=== PATIENT | female | born 1955 | race Caucasian/White ===

== ENCOUNTER → 2019-06-10 17:45 | Outpatient (CLI) | payer OTHER, SELFPAY ==
--- NOTE | ~2019-06-10 | MM_ITS ---
EXAMINATION: MM screening to BI w atif HISTORY: Screening mammogram TECHNIQUE: Craniocaudal and mediolateral oblique 3-D tomosynthesis images were obtained and synthetic 2-D images were generated. CAD analysis was submitted and interpreted. COMPARISON: No prior mammogram is available for comparison at this institution. BREAST PARENCHYMAL COMPOSITION: The breasts are heterogeneously dense, which may obscure small masses . FINDINGS: There is no evidence of suspicious mass, calcification, or architectural distortion to sugg est malignancy in either breast. There has been no suspicious interval change. IMPRESSION: 1. No mammographic evidence of malignancy. 2. Recommend routine screening mammography in one year. BI-RADS Category 1: Negative Reviewed, dictated and finalized at location A. 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
== END ==
PROVIDERS: Visit Provider Obstetrics & Gynecology
DX: Z12.31 Encounter for screening mammogram for malignant neoplasm of breast (principal)
CPT/HCPCS: 77063; 77067

== ENCOUNTER 2019-09-18 09:02 | Outpatient (CLI) | payer OTHER, SELFPAY | END 2019-09-18 09:03 | disposition home or self-care (01) | PROVIDERS: PCP Family Medicine; Visit Provider Family Medicine | DX: H90.3 Sensorineural hearing loss, bilateral (principal) | CPT/HCPCS: 92557; 92567 ==

== ENCOUNTER 2020-02-23 08:39 | Outpatient (NON) | payer OTHER, SELFPAY ==
[2020-02-25 13:17] LABS: SARS-CoV-2 RNA PCR Negative
== END 2020-02-23 08:40 ==
LOC: ANHCOVIDDT 08:40
PROVIDERS: Visit Provider Family Medicine
DX: Z20.828 Contact with and (suspected) exposure to other viral communicable diseases (principal)
CPT/HCPCS: 87635; C9803; U0003

== ENCOUNTER → 2020-06-19 01:38 | Outpatient (CLI) | payer BC, SELFPAY ==
[2020-06-19 18:53] LABS: SARS-CoV-2 RNA PCR Negative
== END ==
PROVIDERS: PCP Family Medicine; Visit Provider Internal Medicine Gastroenterology
DX: Z01.812 Encounter for preprocedural laboratory examination (principal); Z20.822 Contact with and (suspected) exposure to COVID-19
CPT/HCPCS: C9803; U0003; U0005

== ENCOUNTER 2020-06-22 01:06 | Day surgery (SDC) | payer BC, SELFPAY ==
[2020-06-10 15:32] VITALS: BMI 21.9
[2020-06-22 06:27] VITALS: BP 115/81; PULSE 78; RESP 18; TEMP 36.7; O2SAT 96; BMI 21.3
[2020-06-22] MEDS: LACTATED RINGERS 1,000 ML 150 ML IV CONT (06:39)
--- NOTE | 2020-06-22 07:08 | WPDANESEPPF ---
Anes - Initial Pre Proc Eval Procedure: Operation Date: 06/22/20 07:30 Proposed Procedures p Screening Colonoscopy - Bhupendra Lopez MD Date/Time: 06/22/20 07:08 Surgeon: Bhupendra Lopez MD Pre Op Diagnosis: Neoplasm Screening Patient Data Age: 64 Gender: F Height: 5 ft 4 in Weight: 56.3 kg Last Vital Signs Temp 98.0 F 06/22/20 06:27 Pulse 78 06/22/20 06:27 Resp 18 06/22/20 06:27 BP 115/81 06/22/20 06:27 Pulse Ox 96 06/22/20 06:27 Allergies Allergy/AdvReac Type Severity Reaction Status Date / Time No Known Allergies Allergy Unknown Verified 06/22/20 06:24 Home Medications Medication Instructions Recorded Confirmed Type valsartan 160 1 tablet PO DAILY #90 tablet 07/11/19 06/22/20 Rx mg-hydrochlorothiazide 25 mg tablet docusate sodium 100 mg capsule 100 mg PO BID 10/06/19 06/22/20 History famotidine 20 mg tablet 20 mg PO BID tablet 10/06/19 06/22/20 History polyethylene glycol 3350 17 17 gm PO DAILY 10/06/19 06/22/20 History gram/dose oral powder levothyroxine 100 mcg tablet 100 mcg PO DAILY #90 tablet 10/08/19 06/22/20 Rx mometasone 50 mcg/actuation nasal 2 spray NASAL DAILY #17 gm 03/18/20 06/22/20 Rx spray nitrofurantoin macrocrystal 50 mg See Rx Instructions PO .COMPLEX 05/18/20 06/22/20 Rx capsule #90 cap calcium carbonate [Calcium 500] 500 mg PO DAILY 06/10/20 06/22/20 History diclofenac sodium [Voltaren] 2 gm TOPICAL QID PRN 06/10/20 06/22/20 History fexofenadine 60 mg PO HS 06/10/20 06/22/20 History fexofenadine-pseudoephedrine 1 tablet PO DAILY 06/10/20 06/22/20 History [Harmony-D 12 Hour] cb-pi-yqdz-FA-Ca carb-vit K 1 tablet PO DAILY 06/10/20 06/22/20 History [Women's Multivitamin] Patient hx anesthesia problems: none Family hx anesthesia problems: none [facility] Past Medical History Medical History (Updated 06/22/20 @ 07:08 by Candelario Flores MD) Essential (primary) hypertension GERD (gastroesophageal reflux disease) Hypothyroidism (acquired) Surgical History Surgical History H/O hernia repair H/O: hysterectomy (~06/2019) left ovaries History of bladder surgery Family History Family History Father Diabetes mellitus Hypertension Family history of elevated blood lipids Family history of cardiovascular disease Family history of coronary artery disease Grandparent Cerebrovascular accident Social History Social History Smoking packs per day: 2 Smoking cigarettes per day: 40.0 Years smoked: 28 Smoking pack-years: 56.00 Smoking status: Former smoker Alcohol intake: current Alcohol use details: rarely Living arrangements: with family Gender identity (if verbalized by the patient): Female Spiritual care concerns: No Anes - Eval Final PreProcedure Day of Procedure 06/22/20 07:08 Patient weight: normal Heart: regular rate and rhythm Lungs: clear to auscultation Airway: Mallampati scale class II (braces) Neurological: alert and oriented Last oral intake: >/= 8 hours ASA classification: II Emergent: no Anesthetic plan: proceed Anesthesia type and monitoring: general GIVS and standard monitoring Informed Consent: The patient's anesthetic plan and its attendant risks and benefits were discussed with the patient/family/POA. Questions were solicited and answers provided to the satisfaction of the patient/family/POA.
--- NOTE | 2020-06-22 07:28 | PM.HPGS ---
History of Present Illness History of Present Illness Consent: Risks, benefits, and alternatives have been discussed and questions answered. Patient agrees to proceed with procedure. Chief complaint: Neoplasm Screening Narrative: Jessica Lam is a 64 year old female with last colonoscopy 2009 Review of Systems Constitutional: Constitutional: Denies headache(s) and Denies weakness Eyes: Eyes: Denies blurry vision ENT: Reports Normal hearing present, Denies headache(s) and Denies neck pain Cardiovascular: Cardiovascular: Denies chest pain and Denies dyspnea Respiratory: Respiratory: Denies dyspnea Gastrointestinal: Gastrointestinal: Reports no additional gastrointestinal complaints Genitourinary: Genitourinary: Denies dysuria Musculoskeletal: Musculoskeletal: Denies neck pain Integumentary/Breasts: Skin/Breast: Denies dry skin Neurologic: Reports Normal hearing present, Denies headache(s) and Denies weakness Psychiatric: Psychiatric: Denies anxiety Endocrine: Endocrine: Denies change in body appearance Hematologic/Lymphatic: Hematologic/Lymphatic: Denies easy bleeding Allergic/Immunologic: Allergic/Immunologic: Denies urticaria [facility] Past Medical History Medical History (Updated 06/22/20 @ 07:28 by Bhupendra Lopez MD) Colon cancer screening Essential (primary) hypertension GERD (gastroesophageal reflux disease) Hypothyroidism (acquired) Surgical History Surgical History H/O hernia repair H/O: hysterectomy (~06/2019) left ovaries History of bladder surgery Family History Family History Father Diabetes mellitus Hypertension Family history of elevated blood lipids Family history of cardiovascular disease Family history of coronary artery disease Grandparent Cerebrovascular accident Social History Social History Smoking packs per day: 2 Smoking cigarettes per day: 40.0 Years smoked: 28 Smoking pack-years: 56.00 Smoking status: Former smoker Alcohol intake: current Alcohol use details: rarely Living arrangements: with family Gender identity (if verbalized by the patient): Female Spiritual care concerns: No Meds Home Medications and Allergies Home Medications Medication Instructions Recorded Confirmed Type valsartan 160 1 tablet PO DAILY #90 tablet 07/11/19 06/22/20 Rx mg-hydrochlorothiazide 25 mg tablet docusate sodium 100 mg capsule 100 mg PO BID 10/06/19 06/22/20 History famotidine 20 mg tablet 20 mg PO BID tablet 10/06/19 06/22/20 History polyethylene glycol 3350 17 17 gm PO DAILY 10/06/19 06/22/20 History gram/dose oral powder levothyroxine 100 mcg tablet 100 mcg PO DAILY #90 tablet 10/08/19 06/22/20 Rx mometasone 50 mcg/actuation nasal 2 spray NASAL DAILY #17 gm 03/18/20 06/22/20 Rx spray nitrofurantoin macrocrystal 50 mg See Rx Instructions PO .COMPLEX 05/18/20 06/22/20 Rx capsule #90 cap calcium carbonate [Calcium 500] 500 mg PO DAILY 06/10/20 06/22/20 History diclofenac sodium [Voltaren] 2 gm TOPICAL QID PRN 06/10/20 06/22/20 History fexofenadine 60 mg PO HS 06/10/20 06/22/20 History fexofenadine-pseudoephedrine 1 tablet PO DAILY 06/10/20 06/22/20 History [Harmony-D 12 Hour] hb-al-bstt-FA-Ca carb-vit K 1 tablet PO DAILY 06/10/20 06/22/20 History [Women's Multivitamin] Allergies Allergy/AdvReac Type Severity Reaction Status Date / Time No Known Allergies Allergy Unknown Verified 06/22/20 06:24 Vital Signs Vital Signs - 24 hr 06/22/20 06:27 Temperature 98.0 F Pulse Rate 78 Respiratory Rate 18 Blood Pressure 115/81 Pulse Oximetry 96 Exam Const: General: comfortable and no acute distress HENMT: General nose exam: Normal nares present Eyes: General: appearance normal, both eyes and all related structures Neck: Neck: no
[2020-06-22 07:47] VITALS: BP 108/64; PULSE 73; RESP 18; O2SAT 97
[2020-06-22 07:57] VITALS: BP 113/76; PULSE 70; RESP 14; O2SAT 98
[2020-06-22 08:07] VITALS: BP 123/80; PULSE 53; RESP 14; O2SAT 100
== END 2020-06-22 08:20 | disposition home or self-care (01) ==
PROVIDERS: PCP Family Medicine; Visit Provider Internal Medicine Gastroenterology
PROC: 0DJD8ZZ Inspection of Lower Intestinal Tract, Via Natural or Artificial Opening Endoscopic (ICD-10-PCS; CPT 45378; principal; 2020-06-22 07:30)
DX: Z12.11 Encounter for screening for malignant neoplasm of colon (principal); K57.30 Diverticulosis of large intestine without perforation or abscess without bleeding; K64.8 Other hemorrhoids; I10 Essential (primary) hypertension; E03.9 Hypothyroidism, unspecified; K21.9 Gastro-esophageal reflux disease without esophagitis; Z87.891 Personal history of nicotine dependence
CPT/HCPCS: 45378; J2001; J2704; J7120

== ENCOUNTER 2020-10-29 10:03 | Emergency (ER) | payer BC, SELFPAY ==
--- NOTE | ~2020-10-29 | XR_ITS ---
EXAMINATION: XR abdomen/kub 1V INDICATION: Constipation and abdominal pain TECHNIQUE: Supine views of the abdomen were obtained on 2 radiographs. COMPARISON: None FINDINGS: There is a moderate volume of colonic stool. No dilated loops of bowel are evident. Lumbar levoscoliosis is noted. IMPRESSION: 1. Moderate volume of colonic stool. Reviewed, dictated and finalized at location B.
[2020-10-29 10:20] VITALS: BP 113/66; PULSE 63; RESP 16; TEMP 36.5; O2SAT 100
--- NOTE | 2020-10-29 10:46 | ED.ABDPAIN ---
HPI - Abdominal Pain General Chief Complaint: Abdominal Pain Stated Complaint: Constipation, lower abdominal pain Source: patient and RN notes reviewed Mode of arrival: ambulatory History of Present Illness HPI narrative: This is a 65-year-old female who presented to urgent care with complaints of abdominal cramping and constipation. Patient does have a history of chronic constipation and takes stool softeners and MiraLAX daily. She noted that on Sunday her abdomen felt full and she felt constipated and took this enema with no relief on Sunday she continued to have cramps and took an additional enema. She then called her primary care physician on Sunday inform her that she can take up to 3 enemas a day she took 2 on Sunday with little relief and then again on Sunday she took another with little relief. She has not had a bowel movement since Sunday and continues to have cramping to her abdomen she also complains of lower abdominal tenderness. The patient denies SOB, CP, palpitation, extremity numbness, lightheadedness, dizziness, constipation, diarrhea, chills, or fever. Patient notes that in the past she has of the abdomen she is not experiencing this at that time and has limited her intake to avoid it Related Data Home Medications Medication Instructions Recorded Confirmed docusate sodium 100 mg capsule 100 mg PO BID 10/06/19 10/29/20 famotidine 20 mg tablet 20 mg PO BID tablet 10/06/19 10/29/20 polyethylene glycol 3350 17 17 gm PO DAILY 10/06/19 10/29/20 gram/dose oral powder calcium carbonate [Calcium 500] 500 mg PO DAILY 06/10/20 10/29/20 diclofenac sodium [Voltaren] 2 gm TOPICAL QID PRN 06/10/20 10/29/20 fexofenadine 60 mg PO HS 06/10/20 10/29/20 fexofenadine-pseudoephedrine 1 tablet PO DAILY 06/10/20 10/29/20 [Harmony-D 12 Hour] jd-oh-kqhn-FA-Ca carb-vit K 1 tablet PO DAILY 06/10/20 10/29/20 [Women's Multivitamin] levothyroxine [Synthroid] 100 mcg PO DAILY 10/29/20 10/29/20 Allergies Allergy/AdvReac Type Severity Reaction Status Date / Time No Known Allergies Allergy Unknown Verified 10/29/20 11:03 Review of Systems Review of Systems: Narrative: A 14 organ system Review of Systems was performed and pertinent positives included in the HPI, otherwise remaining ROS is negative. All systems reviewed & are unremarkable except as noted in HPI and below PMFSH Past Medical History Medical History (Updated 10/29/20 @ 11:24 by VIKTOR Elizabeth-C) Colon cancer screening Essential (primary) hypertension GERD (gastroesophageal reflux disease) Hypothyroidism (acquired) Surgical History Surgical History H/O hernia repair H/O: hysterectomy (~06/2019) left ovaries History of bladder surgery Family History Family History Father Diabetes mellitus Hypertension Family history of elevated blood lipids Family history of cardiovascular disease Family history of coronary artery disease Grandparent Cerebrovascular accident Social History Social History Smoking packs per day: 2 Smoking cigarettes per day: 40.0 Years smoked: 28 Smoking pack-years: 56.00 Alcohol intake: current Alcohol use details: rarely Gender identity (if verbalized by the patient): Female Spiritual care concerns: No Exam Narrative: Exam Narrative: GENERAL: This is a well-nourished, well-developed patient, in no apparent distress. HEAD: normocephalic, atraumatic. EYES: PERRL. Sclera clear/white. Vision is grossly intact. EARS: External ears normal, auditory canals clear and without drainage, TMs normal without perforation. Hearing grossly intact. NOSE: External nose normal with no obvious nasal discharge, nares without redness, no rhinorrhea. THROAT: Mucous membranes moist, posterior pharynx clear. NECK: Neck supple, non-tender without lymphadenopathy, ma
== END 2020-10-29 11:48 | disposition home or self-care (01) ==
PROVIDERS: Emergency Provider Nurse Practitioner; PCP Family Medicine
DX: K59.00 Constipation, unspecified (principal); F17.210 Nicotine dependence, cigarettes, uncomplicated; I10 Essential (primary) hypertension; K21.9 Gastro-esophageal reflux disease without esophagitis; E03.9 Hypothyroidism, unspecified
CPT/HCPCS: 74018; 99213; G0463

== ENCOUNTER → 2020-11-11 10:41 | Outpatient (CLI) | payer BC, SELFPAY ==
--- NOTE | ~2020-11-11 | MM_ITS ---
EXAMINATION: MM screening [facility] BI w atif HISTORY: Screening TECHNIQUE: Craniocaudal and mediolateral oblique 3-D tomosynthesis images were obtained and synthetic 2-D images were generated. CAD analysis was submitted and interpreted. COMPARISON: 07/07/2019 BREAST PARENCHYMAL COMPOSITION: There are scattered areas of fibroglandular density. FINDINGS: There is a focal asymmetry in the upper outer quadrant of the right breast. The left breast is stable without evidence for malignancy. IMPRESSION: 1. Focal asymmetry in the upper outer quadrant of the right breast. 2. Additional mammographic views and possible breast ultrasound are recommended. BI-RADS Category 0: Incomplete: Needs additional imaging evaluation. Reviewed, dictated and finalized at location A. IMPRESSION: 1. Focal asymmetry in the upper outer quadrant of the right breast. 2. Additional mammographic views and possible breast ultrasound are recommended . BI-RADS Category 0: Incomplete: Needs additional imaging evaluation.
== END ==
PROVIDERS: PCP Family Medicine; Visit Provider Student in an Organized Health Care Education/Training Program
DX: Z12.31 Encounter for screening mammogram for malignant neoplasm of breast (principal); R92.8 Other abnormal and inconclusive findings on diagnostic imaging of breast
CPT/HCPCS: 77063; 77067

== ENCOUNTER → 2020-11-24 14:18 | Outpatient (CLI) | payer BC, SELFPAY ==
--- NOTE | ~2020-11-24 | MMUS_ITS ---
EXAMINATION: MM diagnostic to RT w atif, US breast RT limited HISTORY: Focal asymmetry of the right breast on screening mammogram TECHNIQUE: Additional 3-D tomosynthesis images of the right breast were performed and synthetic 2-D i mages were generated. CAD analysis was submitted and interpreted. High resolution limited right breas t ultrasound was performed. COMPARISON: 11/11/2020, 06/10/2019 FINDINGS: MAMMOGRAPHIC FINDINGS: There is a return to baseline fibroglandular appearance with spot compression of the right breast in the area questioned on screening mammogram. ULTRASOUND: There is no evidence of focal abnormal solid or cystic mass in the vicinity of the mammographic findi ng in question IMPRESSION: 1. No mammographic or sonographic evidence of malignancy. 2. Recommend routine screening mammography in one year. BI-RADS Category 1: Negative Reviewed, dictated and finalized at location A. IMPRESSION: 1. No mammographic or sonographic evidence of malignancy. 2. Recommend routine screening mammography in one year. BI-RADS Category 1: Negative
== END ==
PROVIDERS: PCP Family Medicine; Visit Provider Obstetrics & Gynecology
DX: R92.8 Other abnormal and inconclusive findings on diagnostic imaging of breast (principal)
CPT/HCPCS: 76642; 77061; 77065; G0279

== ENCOUNTER → 2021-01-07 17:10 | Outpatient (CLI) | payer BC, SELFPAY ==
--- NOTE | ~2021-01-07 | XR_ITS ---
XR foot RT 2V DATE: 01/07/2021 17:40 INDICATION: Right foot pain TECHNIQUE: AP and lateral views COMPARISON: None FINDINGS: Prominent joint space narrowing and some spurring at the first metatarsal phalangeal joint, consistent with osteoarthritis. No fracture, dislocation, periosteal reaction or bone destruction. IMPRESSION: Osteoarthritis at first metatarsophalangeal joint Reviewed, dictated and finalized at location B.
== END ==
PROVIDERS: PCP Family Medicine; Visit Provider Physician Assistant
DX: M79.671 Pain in right foot (principal); M19.071 Primary osteoarthritis, right ankle and foot
CPT/HCPCS: 73620

== ENCOUNTER → 2021-04-05 09:34 | Outpatient (CLI) | payer BC, SELFPAY ==
[2021-04-06 13:33] LABS: SARS-CoV-2 RNA PCR Positive
== END ==
PROVIDERS: PCP Family Medicine; Visit Provider Physician Assistant
DX: U07.1 COVID-19 (principal)
CPT/HCPCS: C9803; U0003; U0005

== ENCOUNTER 2021-07-08 15:30 | Outpatient (RCR) | payer BC, SELFPAY ==
--- NOTE | 2021-06-20 13:30 | PTOPEVAL ---
PHYSICAL THERAPY EVALUATION AND PLAN OF CARE 06-20-21 Thank you for referring Jessica Lam to [facility] for the diagnosis of R knee pain.? She is scheduled to be seen for therapy? 2x/week for 3 weeks. Please review, sign, date and return this plan of care [place]. I agree with and certify that the following plan of care is medically necessary. Referring Physician Date Attending Provider: Dennys Liang APN Document 06/20/21 12:30 DEONDRE (Rec: 06/20/21 13:25 DEONDRE [id number]) Past Medical History Source of Past Medical History Recalled from Previous Visit, Confirmed with Patient/Family Neurological History Hx Neurological Disorders No Significant History Cardiovascular History Hx Hypertension Yes: meds Respiratory History Hx COVID-19 Yes: recovery of 3-4 days Gastrointestinal History Hx Gastroesophageal Reflux Disease Yes Hx Other Gastrointestinal Disorders Yes: constipation Genitourinary History Hx Bladder Surgery Yes: Bladder sling x2 Hx Urinary Tract Infection Yes Musculoskeletal History Hx Arthritis Yes: thumbs, R foot- big toe and back; had back injection ~ 10 yr ago Hematological History Hx Hematological Disorders No Significant History Endocrine History Hx Hypothyroidism Yes: meds Evaluation Information Problem Diagnosis R knee pain Onset Additional Evaluation Detail onset of knee pain with running, then turned and fell; Subjective Information had steroid injection about 3 Query Text:As Reported By Patient/ weeks ago; have started back Family to walking last week ~ 2 miles ; has improved with less throbbing and sleeping better; also have R foot arthritis and big toe pain with recent injections Diagnostic Tests X-Rays For This Problem Yes: per pt- mild arthritis MRI For This Problem No Previous Treatments Previous Treatments For This Problem no PT for knee Prior Level of Function Activity Level (Last 3 Months) Occupation teacher Activity of Daily Living Ability Independent Indoor/Home Mobility Independent Community Mobility Independent Stairs Ability Independent Functional Cognition (Planning, Shopping Independent , Taking Medications) Cooking Yes Cleaning Yes Laundry Yes Shopping Yes Driving Yes Home Setting Home Type House,Multiple Levels Suppor
--- NOTE | 2021-07-08 16:08 | PTOPEVAL ---
PHYSICAL THERAPY RE-EVALUATION AND HOLD 07-08-21 Refer to the clinical summary below, for her status today, compared to the initial evaluation. She has a follow up appointment next week. Her PT will be placed on HOLD at this time. If PT is to continue, please issue her a new script for PT. Thank you for referring Jessica Lam to [facility].? Please review, sign, date and return this reevaluation report [place]. I agree with and certify that the following plan of care is medically necessary. Referring Physician Date Attending Provider: Dennys Liang APN Subjective Information Radha reports: knee continues Query Text:As Reported By Patient/ to give her pain with walking Family and exercises; has been doing the exercises she was given; has limited her activity level due to knee pain; wants to get an MRI to check her knee; sees dr next week; Pain Assessment Pain Scale Used Numeric (1 - 10) Self Report Pain Assessment Right Knee(s) Reported Pain Level 2 Radicular Pain Location uncomfortable feeling; medial- distal patella Pain Frequency Chronic,Continuous Other Pain Description loose in the knee; feels like not attached right Lowest Pain Intensity 2 Greatest Pain Intensity 7 Pain Aggravating Factors Stair Climbing,Walking Other Pain Aggravating Factors crossing leg with sitting, R over L leg; do not get on hands and knees Pain Score Pain Score 2: Self Report Additional Pain Score Comments with sleeping, awaken from pain 2x/night, hurts, reposition and return to sleep ; have some swelling on medial knee; can tolerate walking 2 miles, but pain increase to 5/ 10; have not been playing as much with grandkids--soccer, running things; reinforced use of ice PRN for pain and soreness; Interventions Used Interventions Used By Clinicians Education Pain Relief Interventions Used By Inactivity/Rest,Position Patient Change Other Alleviating Interventions no longer taking tylenol; rub knee Gross Lower Extremity Range of Motion R knee sitting flexion and Comments extension ranges are WNL and do not increase pain; Gross Lower Extremity Strength f
--- NOTE | 2021-07-28 09:23 | PCPTNOTE ---
PHYSICAL THERAPY DISCHARGE 07-28-21 Attending Provider: Dennys Liang APN Patient:Jessica Lam Date of :1955 Ms. Lam has not returned for any further treatments since the reevaluation on 07/08/2021, therefore she will be discharged at this time. Refer to that report for her status at the last PT session. Thank you for referring this Radha to [facility]. Please review, sign, date and return this discharge summary [place]. I have been updated about the patient's current status and I agree with discharge from the above service at this time. Referring Physician Date
== END 2021-07-11 15:34 | disposition home or self-care (01) ==
LOC: ANHPT 15:30
PROVIDERS: PCP Family Medicine; Visit Provider Nurse Practitioner
DX: M25.561 Pain in right knee (principal)
CPT/HCPCS: 97110; 97112; 97140; 97161; 97530

== ENCOUNTER → 2021-07-25 14:55 | Outpatient (CLI) | payer BC, SELFPAY ==
--- NOTE | ~2021-07-25 | MR_ITS ---
EXAMINATION: MR knee RT wo con DATE: 07/25/2021 15:22 INDICATION: Generalized right knee pain. TECHNIQUE: Magnetic resonance imaging (MRI) of the right knee was performed without intravenous contr ast. Sequences included axial PD-weighted FS FSE, coronal PD-weighted FSE and PD-weighted FS FSE, sag ittal PD-weighted FSE, and sagittal T2-weighted FS FSE. COMPARISON: X-ray 07/12/2021 FINDINGS: Medial compartment: Severe joint space narrowing. Large area of full-thickness cartilage loss on the weightbearing surfac e of the femoral condyle. Degenerative signal change and fraying involving the body of the medial men iscus. Moderate osteophytosis. Lateral compartment: Meniscus intact. Mild cartilaginous thinning. Mild joint space narrowing and osteophytosis. Patellofemoral compartment: Moderate cartilage thinning along the medial facet. Extensor mechanism and retinaculum intact. Minim al osteophytosis. Ligaments and tendons: ACL, PCL, MCL, and LCL are intact. Fluid: Moderate volume joint fluid. Osseous/other: Minimal reactive marrow edema in the medial aspect of the medial femoral condyle and the medial morales lar facet. Subchondral cyst formation at the tibiofibular joint. Marrow signal otherwise benign and h omogenous. IMPRESSION: 1. Severe osteoarthritic change in the medial compartment, with large areas of full-thickness cartila ge loss on the medial femoral condyle. 2. Extensive degenerative signal change in the medial meniscus, no discrete tear. 3. Moderate right knee joint effusion. Reviewed, dictated and finalized at location K. IMPRESSION: 1. Severe osteoarthritic change in the medial compartment, with large areas of full-thickness cartilage loss on the medial femoral condyle. 2. Extensive degenerative signal change in the medial meniscus, no discrete tea r. 3. Moderate right knee joint effusion.
== END ==
PROVIDERS: PCP Family Medicine; Visit Provider Orthopaedic Surgery
DX: M17.11 Unilateral primary osteoarthritis, right knee (principal); M25.461 Effusion, right knee
CPT/HCPCS: 73721

== ENCOUNTER 2021-09-14 07:57 | Outpatient (CLI) | payer BC, SELFPAY ==
--- NOTE | 2021-09-14 08:39 | ECG_ITS ---
Measurements Intervals [place] Rate: 72 P: 61 OK: 202 QRS: 9 QRSD: 91 T: 21 QT: 361 QTc: 395 Interpretive Statements SINUS RHYTHM NO PREVIOUS ECG AVAILABLE FOR COMPARISON Electronically Signed On 09-14-2021 22:10:20 CDT by Merry Carver M.D.
[2021-09-14 09:12] LABS: Basophils Percent Auto 0.7 % (0.2-1.2); Eosinophils Absolute Auto 0.2 K/mm3 (0-0.3); Eosinophils Percent Auto 2.5 % (0-4.4); Hemoglobin 14.2 g/dL (12.0-15.0); Immature Granulocyte Absolute 0.02 K/mm3 (0.00-0.031); Immature Granulocyte Percent A 0.3 % (0-0.5); Lymphocytes Absolute Auto 1.76 K/mm3 (0.9-3.2); Lymphocytes Percent Auto 29.3 % (18.3-44.2); Mean Corpuscular Hemoglobin 30.2 pg (26-34); Mean Corpuscular Volume 91.5 fl (80-100); Mean Platelet Volume 10.4 fl (7.4-10.4); Monocytes Absolute Auto 0.5 K/mm3 (0.1-0.6); Monocytes Percent Auto 7.5 % (2.6-8.5); Neutrophils Absolute Auto 3.6 K/mm3 (1.3-6.7); Neutrophils Percent Auto 59.7 % (45.5-73.1); Platelet Count Result 269 k/mm3 (150-375); Red Cell Distribution Width 12.2 % (11.5-14.5)
[2021-09-14 09:25] LABS: Anion Gap 2 mmol/L (8-16); Blood Urea Nitrogen 21 mg/dL (7-17); Calcium 9.5 mg/dL (8.4-10.2); Carbon Dioxide 32 mmol/L (22-30); Chloride 104 mmol/L (98-107); Estimated Glomerular Filt Rate > 60; Glucose 100 mg/dL (65-110); Potassium 4.2 mmol/L (3.4-5.0); Sodium 138 mmol/L (137-145)
== END 2021-09-14 07:58 | disposition home or self-care (01) ==
LOC: ANHSURGERY 08:02
PROVIDERS: Anesthesiology; PCP Family Medicine; Visit Provider Orthopaedic Surgery
DX: Z01.818 Encounter for other preprocedural examination (principal); M17.11 Unilateral primary osteoarthritis, right knee; I10 Essential (primary) hypertension; Z51.81 Encounter for therapeutic drug level monitoring; Z79.899 Other long term (current) drug therapy
CPT/HCPCS: 36415; 80048; 85025; 86850; 86900; 86901; 87081; 93005

== ENCOUNTER 2021-09-27 00:41 | Day surgery (SDC) | payer BC, SELFPAY ==
[2021-09-14 07:37] VITALS: BMI 24.3
--- NOTE | 2021-09-14 07:43 | PC.NURSE ---
Report to the Outpatient Waiting Room, entrance under the green pavilion located off [facility], at time _0900_ on date _09/27/21_. OR Time: _1100_. - You and your visitor will be asked a series of questions to screen for COVID 19 for your protection. - Only one visitor is allowed at this time. - The patient visitor is requested to leave or wait in car when not with patient. - A mask is required within the hospital. Patients may have clear liquids (water, carbonated beverages, clear teas, apple juice) until 3 hours prior to surgery (0800 AM) with a maximum of 20 ounces. - No food from midnight until time of surgery Take the following medications with a SIP of water the morning of surgery: _LEVOTHYROXINE, NASAL SPRAY IF NEEDED_ Medications to discontinue per ANESTHESIA - MULTIVITAMIN 3 DAYS PRIOR TO SURGERY, Date to take last dose 09/23/21_ Please no make-up, nail armenian, hairspray, perfume, deodorant, or body powder the day of surgery. No jewelry (including any body piercings) or valuables the day of surgery, leave them at home. Please take a shower or bath the night before, or the morning of, surgery with an antibacterial soap. Wear comfortable, loose fitting clothing. - Jewelry must be removed prior to entering the operating room. Rings and piercings that are not removed may be cut off. - The hospital will not accept responsibility for valuables. - Please leave all valuables, including medications, at home the day of surgery. If you are going home after surgery, a licensed services delivery driver must drive you home. - NO public transportation without another adult. - We recommend that an adult stay with you for 24 hours following discharge. - We also recommend that you do not drive, make important decision, drink alcoholic beverages, or take any drugs that were not prescribed by your health care provider for at least 24 hours after your discharge time. Follow any additional instructions given to you from DR. SANCHEZ. If you or anyone in your household have experienced Covid symptoms in the past week, please notify your surgeon or the nurse liaison at the phone number below for possible testing. Instructions given to and asked if any additional questions and then verbalized understanding. Patient advised to call surgeon office or pre surgery nurse liaison [phone] if any additional questions.
[2021-09-14 08:20] VITALS: BP 130/84; PULSE 76; RESP 18; TEMP 37; O2SAT 96
--- NOTE | 2021-09-26 12:32 | WPDANESEPPF ---
Anes - Initial Pre Proc Eval Procedure: Operation Date: 09/27/21 07:30 Proposed Procedures p Right Knee Unicompartmental Replacement - Flaco Balderrama MD Date/Time: 09/26/21 12:32 Surgeon: Flaco Balderrama MD Pre Op Diagnosis: O A Rt Knee Patient Data Age: 66 Gender: F Height: 1.6 m Weight: 62.1 kg Last Vital Signs Temp 37.0 C 09/14/21 08:20 Pulse 76 09/14/21 08:20 Resp 18 09/14/21 08:20 BP 130/84 09/14/21 08:20 Pulse Ox 96 09/14/21 08:20 O2 Del Method Room Air 09/14/21 08:20 Allergies Allergy/AdvReac Type Severity Reaction Status Date / Time No Known Allergies Allergy Unknown Verified 09/27/21 06:19 Home Medications Medication Instructions Recorded Confirmed Type docusate sodium 100 mg capsule 100 mg PO BID 10/06/19 09/27/21 History (Stool Softener) famotidine 20 mg tablet 20 mg PO BID 10/06/19 09/27/21 History polyethylene glycol 3350 17 17 gm PO QAM 10/06/19 09/27/21 History gram/dose oral powder (Miralax) hrzghwni-qpb-hydc 18 mg-FA 400 1 tablet PO QAM 06/10/20 09/27/21 History mcg-calcium 500 mg-vit K 50 mcg tablet (Women's Multivitamin) fexofenadine 60 mg-pseudoephedrine 1 tablet PO DAILY #180 tabs 01/27/21 09/27/21 Rx ER 120 mg tablet,ext.release,12 hr (Harmony-D 12 Hour) valsartan 160 See Rx Instructions .Route 03/22/21 09/27/21 Rx mg-hydrochlorothiazide 25 mg tablet .COMPLEX #90 tabs cholecalciferol (vitamin D3) 125 125 mcg PO DAILY 05/31/21 09/27/21 History mcg (5,000 unit) capsule levothyroxine 100 mcg tablet See Rx Instructions .Route 07/20/21 09/27/21 Rx (Synthroid) .COMPLEX #90 tabs acyclovir 800 mg tablet See Rx Instructions PO TID PRN HSV 09/13/21 09/14/21 Rx #30 tabs fexofenadine 60 mg tablet (Harmony 60 mg HS 09/14/21 09/27/21 History Allergy) mometasone 50 mcg/actuation nasal 2 spray intranasal QAM 09/14/21 09/27/21 History spray rivaroxaban 10 mg tablet (Xarelto) 10 mg PO DAILY #14 tabs 09/14/21 Rx nitrofurantoin macrocrystal 50 mg See Rx Instructions .Route 09/26/21 Rx capsule .COMPLEX #90 caps Patient hx anesthesia problems: none Family hx anesthesia problems: none Results Review: All pre-operative results and documents have been reviewed as part of the pre-operative evaluation. [facility] Past Medical History Medical History (Updated 09/27/21 @ 06:45 by Rafael Gonzales DO) Allergies Colon cancer screening Essential (primary) hypertension GERD (gastroesophageal reflux disease) Hypothyroidism (acquired) Osteoarthritis of right knee Right knee pain Skin cancer Small intestinal bacterial overgrowth (SIBO) Thyroid disorder Surgical History Surgical History H/O: hysterectomy (~06/2019) left ovaries History of bladder surgery History of Family History Family History Father Diabetes mellitus Hypertension Heart disease Cerebrovascular accident Sibling Hypertension Ovarian cancer Son Diabetes mellitus Social History Social History Smoking packs per day: 2 Smoking cigarettes per day: 40.0 Years smoked: 28 Smoking pack-years: 56.00 Tobacco type: cigarettes Second hand tobacco smoke exposure: No Smoking end date: 04/09/01 Additional smoking assessment comments: PT DENIES ALL FORMS OF TOBACCO USE Alcohol intake: current Drinks per week: 1 Alcohol use details: rarely Substance use: unknown Substance use type: does not use Living arrangements: with family Additional occupation/education comments: [employer] Gender identity (if verbalized by the patient): Female Sexual Orientation (if Verbalized by the Patient): Straight or Heterosexual Spiritual care concerns: No Agree to blood products: Yes Anes - Eval Final PreProcedure Day of Procedu
[2021-09-27] VITALS (11 sets, daily range): BP systolic 103–125; BP diastolic 30–87; PULSE 58–95; RESP 14–21; TEMP 35.9–36.9; O2SAT 93–97
--- NOTE | ~2021-09-27 | XR_ITS ---
EXAMINATION: KNEE ONE/TWO VIEW-RIGHT DATE: 09/27/2021 10:27 INDICATION: Postoperative evaluation following right knee medial unicompartmental arthroplasty TECHNIQUE: Anteroposterior and lateral views of the right knee were obtained. COMPARISON: 05/31/2021 FINDINGS: Right knee medial unicompartmental arthroplasty appears well seated with 17 degrees posterior tilt. T here appears to be some obliquity to the AP axis of the tibial component relative to the femoral comp onent on the frontal projection although there also appears to be some external rotation of the tibia and fibula relative to the femur when compared with the earlier radiographs. No fractures identified . Expected postoperative subcutaneous and intra-articular gas. IMPRESSION: 1. Right knee medial unicompartmental arthroplasty with suggestion of some rotation of the axis of th e tibial component relative to the femoral component which may be positional given that there also ap pears to be some corresponding external rotation of the tibia and fibula relative to the femur. Reviewed, dictated and finalized at location B. IMPRESSION: 1. Right knee medial unicompartmental arthroplasty with suggestion of some rota tion of the axis of the tibial component relative to the femoral component whic h may be positional given that there also appears to be some corresponding exte rnal rotation of the tibia and fibula relative to the femur.
[2021-09-27] MEDS: ACETAMINOPHEN 500 MG TABLET 1000 MG PO (06:24)
[2021-09-27] MEDS: LACTATED RINGERS 1,000 ML 30 ML IV CONT ×2 (06:44→10:17)
--- NOTE | 2021-09-27 06:45 | WPDANESPNB ---
Anes - Peripheral Nerve Block Date/Time: 09/27/21 06:45 I have discussed with the patient/family/POA the placement of a peripheral nerve block for post-operative pain management, including associated risks, benefits, complications, and side effects. Alternative methods of post-operative analgesia were detailed. Questions were solicited and answers provided to the satisfaction of the patient/family/POA. Time-Out: A pre-procedural Time-Out was completed immediately before starting the procedure and confirmed: Patient Identification, Site, Procedure, Patient Position and the Availability of Requisite Equipment. Clinical Indications: Acute post-operative pain management requested by the operative surgeon. Nerve Block Insertion Note Anes-nerve block: adductor canal right Patient position: supine Skin prep: chlorhexidine Needle: 22 gauge, stimulating, insulated echogenic needle. Needle length: 80 mm Technique: ultrasound Injectate: bupivacaine 0.5% with epi 5 mcg/ml (30cc - no epi) Observations: tolerated well Complications: none Procedure start time:: 716 Procedure end time:: 719
[2021-09-27] MEDS: TRANEXAMIC ACID 1,000MG/ISO100 1,000 MG/100 ML BAG 200 MG IVPB (06:57)
--- NOTE | 2021-09-27 07:07 | WPDHPUPDATE1 ---
History and Physical Update Update Date/Time: 09/27/21 07:07 History and Physical has been reviewed, including an updated exam of the patient. There are NO changes in the patient's condition. Risks, benefits, and alternatives have been discussed and questions answered. Patient agrees to proceed with procedure.
[2021-09-27] MEDS: ceFAZolin 2 GM/D5W 50 ML 2 GM/50 ML BAG IVPB (07:35)
--- NOTE | 2021-09-27 10:02 | W.PM.PROC2 ---
Procedure Note - Detailed Date of Procedure 09/27/21 Pre-op Diagnosis O A Rt Knee Post-op Diagnosis Same Procedure Performed Right knee unicompartmental replacement Surgeon Flaco Balderrama MD Prisoner Classification Interviewer [facility] Description of Procedure The patient was identified and the proper site identified. In the preop holding area the anesthesia team performed a right-sided lower extremity block. She was then taken to the operating room and transferred to the OR table placing her supine taking care to pad his torso and extremities. After general anesthetic induction and intubation. a nonsterile tourniquet was placed high on the rightthigh. The extremity was positioned, prepped, and draped in the usual sterile fashion. The extremity was exsanguinated and the tourniquet was inflated to 250mmHg remaining up for approximately 50 minutes. An anterior midline incision was made and sharp dissection carried down through the subcutaneous tissue to the extensor mechanism. A modified medial parapatellar arthrotomy was performed. The articular and meniscal cartilage of the lateral compartment was inspected and noted to be in excellent shape. Anterior and posterior cruciate ligaments were in continuity. There were extensive degenerative changes medial compartment and milder patellofemoral changes. The marginal osteophytes were removed from the notch and the medial aspect of the medial femoral condyle, and the remaining meniscal tissue was removed. The femur was sized to a small. With the appropriate spoon and tibial guide, a tibial resection was made. This was sized to AA. Using the mill, the flexion and extension gaps were balanced. A trial reduction was undertaken. The range of motion of the knee was noted to be from full extension to 0-120 ? of flexion with excellent stability through range of motion. The polyethylene insert tracked nicely. The trial components were removed. The real small femur and size AA tray for the right knee were cemented into place. The knee was held in about 30? of flexion while the cement cured. The tourniquet was released and excess cement was removed from the joint. Hemostasis was carried out. The knee was flushed with a copious amount of irrigation. After trialing, the appropriate real size 3 insert for the femoral component was inserted and the stability again assessed. The knee was noted to be stable as it was taken through range of motion. The periarticular tissues were injected with 60 mL of the arthroplasty solution. After a 3 minutes Betadine bath the wound irrigated. The extensor mechanism was repaired with 0 looped PDS suture, the subcu with 3-0 Monocryl and 3-0 Stratafix with tissue adhesive the skin. A sterile dressing was applied. The patient tolerated the procedure well, was awakened, extubated, and taken to recovery room in stable condition. Estimated Blood Loss 150 Tourniquet Time 50 Drains No Packing No Pathology None sent Complications No immediate complications Condition Stable Disposition PACU
--- NOTE | 2021-09-27 11:14 | ADMGEN ---
This patient, Jessica Lam, was admitted to Medical Room 244-. Patient/family oriented to hospital policies and general routines including ID bracelet, bed and alarms, visiting hours, pain management, procedures, bathroom and other care routines, personal items, smoking policy, room service/diet, and visiting hours. Information on how to activate the Rapid Response Team has been discussed. Patient/Family are encouraged to report perceived risks to care and to ask questions if they do not understand what they are told or what they should do.
[2021-09-27] MEDS: SODIUM CHLORIDE 0.9% IV 1,000 ML 125 ML IV CONT (11:36)
[2021-09-27] MEDS: KETOROLAC 15 MG/ML VIAL (*BKC) IV PUSH ×3 (12:56→23:07)
[2021-09-27] MEDS: HYDROcodone/acetaminophen (*CRX) 5-325 MG TABLET 2 TAB PO ×2 (14:30→20:38)
[2021-09-27] MEDS: SENNA/DOCUSATE SODIUM TABLET 2 TAB PO (16:47)
[2021-09-27] MEDS: FAMOTIDINE 20 MG TABLET PO (16:47)
[2021-09-27] MEDS: LORATADINE 10 MG TABLET PO (20:39)
[2021-09-28 00:26] VITALS: BP 112/61; PULSE 80; RESP 20; TEMP 36.6; O2SAT 97
[2021-09-28 04:01] VITALS: BP 113/58; PULSE 71; RESP 18; TEMP 36.7; O2SAT 96
[2021-09-28] MEDS: HYDROcodone/acetaminophen (*CRX) 5-325 MG TABLET 2 TAB PO ×2 (04:40→09:54)
[2021-09-28] MEDS: KETOROLAC 15 MG/ML VIAL (*BKC) IV PUSH (06:01)
[2021-09-28] MEDS: LEVOTHYROXINE SODIUM 100 MCG TABLET PO (06:01)
--- NOTE | 2021-09-28 07:18 | PM.DS ---
DS: Admitting Diagnosis Discharge Date 09/28/2021 Admitting Diagnosis Right knee osteoarthritis DS: Discharge Diagnosis Discharge Diagnosis (1) Status post right unicompartmental knee replacement: Code(s): Z96.651 - Presence of right artificial knee joint Status: Acute Plan 66-year-old female postop day 1 after right unicompartmental knee replacement with Dr. Balderrama. Uneventful overnight stay. Pain is well controlled on exam this morning. Range of motion is excellent. Plan to see her in 2 weeks for wound check. She does wish to go on a trip to [place], [place] in the should be fine as long as she plans to get out of the car to stretch the leg once an hour. DS: Summary Hospital Course Reason for hospitalization: Observation after outpatient procedure Hospital Course: 66-year-old female admitted for observation after right unicompartmental knee replacement. She was seen by therapy after the procedure and tolerated this well. Uneventful overnight stay. Plan to be seen by therapy again prior to discharge today. She will follow up in the office in 2 weeks. Status at Discharge Functional status at discharge: uses cane/walker Overall status at discharge: patient is progressing back to baseline Time Spent with Patient Time attestation: Total time spent providing and/or coordinating discharge services: Time spent: Less than 30 minutes Exam Const: General: comfortable and no acute distress Eyes: General: appearance normal, both eyes and all related structures Resp: Effort & Inspection: normal respiratory effort Skin: General skin exam: normal color and no rashes or lesions noted Extrem: Other: Exam of the right lower extremity reveals mild swelling around the right knee. Surgical dressing is clean dry. No numbness or tingling in the lower leg. She can wiggle toes without difficulty. Neurovascular status right lower extremity is unremarkable. Psych: Mental Status: mental status grossly normal Discharge Plan Discharge Patient Disposition: Home, Self-Care Discharge Instructions: 3 times daily for 20 minutes each time, reclining in bed with ice packs over the incision and a pillow underneath the calf of the affected leg, not under the knee. Your wound is glued so it is okay to remove the dressing, get into the shower and get the wound wet in two days. Be sure to read through all the information that came from a my office and the hospital.? Most of the answers you will need can be found that material. Call the office with any questions that you cannot find answers to, or concerns you may have. After the Xarelto is completed, start taking one coated 325 mg aspirin daily and do this for four more weeks. Please call [facility] at as soon as possible to arrange for/verify your follow-up appointment to be seen in 2 weeks.? Also, call the office with any orthopedic/surgical related questions prior to follow-up. Be sure to get up and move around several times daily but do not overdo it. Take the arthritis formula Tylenol 650 mg tablet on an 8 hour schedule.? A good 8 hour schedule is:? 6:00 a.m., 2:00 p.m., 10:00 p.m. you may take the prescribed pain medication?along with?the Tylenol; it is?not?to be taken instead of the Tylenol.? I would like for you to take the Tylenol on a schedule for 2-3 weeks. Use the laxative?Senekot S?twice daily for 2 weeks after discharge while taking the prescription pain medication. Use?Miralax?once daily for 2 weeks after discharge while taking the prescription pain medication. Once the Xarelto is completed, if you wish to supplement your pain regimen with [id number] anti-inflammatory such as Advil or Aleve, that is fine.? Follow the label instructions.? Do not take this medicine if you have an allergy to NSAIDs. You have been given a prescription for Celebrex which is an anti-inflammatory to be taken for 1 week. Stand Alone Forms: General Discharge Instructions
--- NOTE | 2021-09-28 07:45 | WPDANESPN ---
Anes - Prog Note Post-Op Date/Time: 09/28/21 07:45 Cardiovascular status: normal Respiratory status: normal Airway patency: baseline Mental status: baseline Post-Op hydration status: normal Vital Signs: Last Vital Signs Temp 36.7 C 09/28/21 04:01 Pulse 71 09/28/21 04:01 Resp 18 09/28/21 04:01 BP 113/58 L 09/28/21 04:01 Pulse Ox 96 09/28/21 04:01 O2 Del Method Room Air 09/27/21 20:00 Pain Score (VAS): 2/10 I/O: Intake & Output 09/27/21 09/27/21 09/28/21 15:59 23:59 07:59 Intake Total 250 1020 450 Output Total 690 800 600 Balance -440 220 -150 Post-procedural complaints: none Patient Feedback: Patient satisfied with anesthetic care.
[2021-09-28] MEDS: SENNA/DOCUSATE SODIUM TABLET 2 TAB PO (08:44)
[2021-09-28] MEDS: FLUTICASONE PROPIONATE 0.05% NA SPR 16 GM BTL (*BKC) 2 SPRAY NASAL (08:44)
[2021-09-28] MEDS: THERAPEUTIC MULTIVITAMINS/MINERALS TAB (*BKC) 1 TABLET PO (08:44)
[2021-09-28] MEDS: CHOLECALCIFEROL 1,000 UNITS TABLET 5000 UNITS PO (08:45)
[2021-09-28] MEDS: hydroCHLOROthiazide 12.5 MG CAPSULE PO (08:45)
[2021-09-28] MEDS: polyethylene glycoL 3350 17 GM POWD.PACK PO (08:45)
[2021-09-28] MEDS: VALSARTAN 160 MG TABLET PO (08:46)
[2021-09-28] MEDS: RIVAROXABAN 10 MG TABLET PO (08:46)
[2021-09-28] MEDS: FAMOTIDINE 20 MG TABLET PO (08:46)
[2021-09-28] MEDS: DOCUSATE SODIUM 100 MG CAPSULE PO (08:50)
== END 2021-09-28 10:56 | disposition home or self-care (01) ==
LOC: ANHSURGERY 06:17 → ANH2MED 11:05
PROVIDERS: PCP Family Medicine; Visit Provider Orthopaedic Surgery
PROC: (CPT 27446; principal; 2021-09-27 07:30)
DX: M17.11 Unilateral primary osteoarthritis, right knee (principal); G89.18 Other acute postprocedural pain; I10 Essential (primary) hypertension; E03.9 Hypothyroidism, unspecified; K21.9 Gastro-esophageal reflux disease without esophagitis; Z87.891 Personal history of nicotine dependence
CPT/HCPCS: 27447; 64447; 73560; 97110; 97116; 97161; 97165; 97530; 97535; A9270; C1713; C1776; J0171; J0690; J1100; J1885; J2250; J2270; J2370; J2405; J2704; J2795; J3010; J7030; J7120

== ENCOUNTER → 2022-02-13 10:36 | Outpatient (CLI) | payer BC, SELFPAY ==
--- NOTE | ~2022-02-13 | MM_ITS ---
EXAMINATION: MM screening to BI w atif HISTORY: Screening mammogram TECHNIQUE: Craniocaudal and mediolateral oblique 3-D tomosynthesis images were obtained and synthetic 2-D images were generated. CAD analysis was submitted and interpreted. COMPARISON: No prior mammogram is available for comparison at this institution. BREAST PARENCHYMAL COMPOSITION: The breasts are heterogeneously dense, which may obscure small masses . FINDINGS: There is stable fibroglandular asymmetry since 06/27/2019. There is no evidence of suspiciou s mass, calcification, or architectural distortion to suggest malignancy in either breast. There has been no suspicious interval change. IMPRESSION: 1. No mammographic evidence of malignancy. 2. Recommend routine screening mammography in one year. BI-RADS Category 2: Benign finding(s). Reviewed, dictated and finalized at location A. LY NURSE PRACTITIONER
== END ==
PROVIDERS: PCP Physician Assistant; Visit Provider Obstetrics & Gynecology
DX: Z12.31 Encounter for screening mammogram for malignant neoplasm of breast (principal)
CPT/HCPCS: 77063; 77067

== ENCOUNTER → 2022-03-08 10:15 | Outpatient (CLI) | payer BC, SELFPAY ==
--- NOTE | ~2022-03-08 | DEXA_ITS ---
Bone Density Report Name: ANTONI CHACKO Age: 66 Sex: Female Ethnicity: White Date of : 1955 Indication: postmenopausal; screening for osteoporosis; height loss; hysterectomy; Referring Provider: Venkata Bradford Study: Bone densitometry was performed. Exam Date: March 08, 2022 Accession number: [id number] Bone Density: Region BMD T-score Z-score Classification AP Spine (L1-L4) 1.078 0.3 2.0 Normal Femoral Neck (Left) 0.844 0.0 1.4 Normal Total Hip (Left) 0.974 0.3 1.5 Normal Femoral Neck (Right) 0.811 -0.3 1.1 Normal Total Hip (Right) 0.959 0.1 1.3 Normal Total Hip Mean 0.967 0.2 1.4 Normal World Health Organization criteria for BMD impression classify patients as: Normal (T-score at or above -1.0), Osteopenia (T-score between -1.0 and -2.5), or Osteoporosis (T-score at or below -2.5). 10-year Fracture Risk: FRAX not reported because: All T-scores for Spine Total, Hip Total, Femoral Neck at or above -1.0 Clinical Information Provided by Patient: Has the following medical conditions: Hysterectomy Patient maximum height was 63.75 Menopause Age: 56 Drinks caffeinated beverages Onset of menses at age 17 Number of children 2 Impression: The patient has normal bone mass. Discussion: BONE DENSITY IS ABOVE THE MINIMUM DESIRABLE LEVEL AT ALL SKELETAL SITES TESTED. This patient?s bone mineral density is above the minimum desirable level (T-score -1.0 or better) at all sites measured. The patient should follow a healthful lifestyle (good nutrition with adequate calcium and vitamin D, and appropriate weight-bearing exercise). Follow-Up: Consider repeating this study in 5 years or sooner if there is some new clinical indication. Reported by: [facility] on 03/08/2022 11:00:00 AM. Reviewed, dictated and finalized at location AFlori HERNÁNDEZ
== END ==
PROVIDERS: PCP Emergency Medicine; Visit Provider Physician Assistant
DX: M85.80 Other specified disorders of bone density and structure, unspecified site (principal)
CPT/HCPCS: 77080

== ENCOUNTER 2022-03-27 12:21 | Outpatient (CLI) | payer BC, SELFPAY ==
[2022-03-27 13:15] LABS: Anion Gap 3 mmol/L (8-16); Blood Urea Nitrogen 13 mg/dL (7-17); Calcium 9.1 mg/dL (8.4-10.2); Carbon Dioxide 33 mmol/L (22-30); Chloride 98 mmol/L (98-107); Estimated Glomerular Filt Rate > 60; Glucose 96 mg/dL (65-110); Potassium 3.5 mmol/L (3.4-5.0); Sodium 134 mmol/L (137-145)
== END 2022-03-27 12:22 | disposition home or self-care (01) ==
PROVIDERS: Anesthesiology; PCP Emergency Medicine; Visit Provider Podiatrist Foot & Ankle Surgery
DX: Z79.899 Other long term (current) drug therapy (principal); Z01.818 Encounter for other preprocedural examination
CPT/HCPCS: 36415; 80048

== ENCOUNTER 2022-04-07 02:12 | Day surgery (SDC) | payer BC, SELFPAY ==
[2022-03-23 15:32] VITALS: BMI 23.3
--- NOTE | 2022-03-23 15:39 | PC.NURSE ---
Report to the Outpatient Waiting Room, entrance under the green pavilion located off [facility], at time 7:00 on date 04/07/22. Planned Procedure Time: 9:00. Time changes happen often and if your time is changed the preop area will call you the afternoon before. - You and your visitor will be asked to self-screen and do not enter if you have any COVID symptoms. - Only one visitor is requested with a max of two and NO children visitors are allowed at this time. - The patient visitor may be requested to leave or wait in car when not with patient due to distancing restrictions. - A mask is REQUIRED within the hospital. Patients may have clear liquids (water, carbonated beverages, clear teas, apple juice) until 3 hours prior to surgery (6:00) with a maximum of 20 ounces. - No food from midnight until time of surgery Take the following medications with a SIP of water the morning of surgery: MACROBID, LEVOTHYROXINE Medications to discontinue per physician: N/A Date to take last dose: N/A Please no make-up, nail amharic, hairspray, perfume, deodorant, or body powder the day of surgery. No jewelry (including any body piercings) or valuables the day of surgery, leave them at home. Please take a shower or bath the night before, or the morning of, surgery with an antibacterial soap. Wear comfortable, loose fitting clothing. - Jewelry must be removed prior to entering the operating room. Rings and piercings that are not removed may be cut off. - The hospital will not accept responsibility for valuables. - Please leave all valuables, including medications, at home the day of surgery. If you are going home after surgery, a licensed residential recycle driver must drive you home. - NO public transportation without another adult if you receive anesthesia. - We recommend that an adult stay with you for 24 hours following discharge. - We also recommend that you do not drive, make important decision, drink alcoholic beverages, or take any drugs that were not prescribed by your health care provider for at least 24 hours after your discharge time. Follow any additional instructions given to you from your surgeon. If you or anyone in your household have experienced Covid symptoms in the past week, please notify your surgeon or the nurse liaison at the phone number below for possible testing. Telephone instructions given to HOMAR CHACKO and asked if any additional questions and then verbalized understanding. Patient advised to call surgeon office or pre surgery nurse liaison [phone] if any additional questions.
--- NOTE | 2022-04-06 08:54 | WPDANESEPPF ---
Anes - Initial Pre Proc Eval Procedure: Operation Date: 04/07/22 09:00 Proposed Procedures p Arthrodesis of First Metatarsal Phalangeal Joint Right Foot - Rosendo Cruz JR, MD Date/Time: 04/06/22 08:54 Surgeon: Rosendo Cruz JR, MD Pre Op Diagnosis: Arthritis 1st MPJ Right Foot Patient Data Age: 66 Gender: F Height: 1.62 m Weight: 61.24 kg Allergies Allergy/AdvReac Type Severity Reaction Status Date / Time No Known Allergies Allergy Unknown Verified 04/07/22 07:22 Home Medications Medication Instructions Recorded Confirmed Type polyethylene glycol 3350 17 17 gm PO QAM 10/06/19 04/07/22 History gram/dose oral powder (Miralax) fexofenadine 60 mg-pseudoephedrine 1 tablet PO DAILY #180 tabs 01/27/21 04/07/22 Rx ER 120 mg tablet,ext.release,12 hr (Harmony-D 12 Hour) valsartan 160 See Rx Instructions .Route 03/22/21 04/07/22 Rx mg-hydrochlorothiazide 25 mg tablet .COMPLEX #90 tabs levothyroxine 100 mcg tablet See Rx Instructions .Route 07/20/21 04/07/22 Rx (Synthroid) .COMPLEX #90 tabs fexofenadine 60 mg tablet (Harmony 60 mg PO HS 09/14/21 04/07/22 History Allergy) mometasone 50 mcg/actuation nasal 2 spray intranasal QAM 09/14/21 04/07/22 History spray nitrofurantoin macrocrystal 50 mg See Rx Instructions .Route 09/26/21 04/07/22 Rx capsule .COMPLEX #90 caps omeprazole 20 mg tablet,delayed 20 mg PO DAILY #90 tabs 03/27/22 04/07/22 Rx release Patient hx anesthesia problems: none Family hx anesthesia problems: none Results Review: All pre-operative results and documents have been reviewed as part of the pre-operative evaluation. [facility] Past Medical History Medical History Allergies Colon cancer screening Essential (primary) hypertension GERD (gastroesophageal reflux disease) Hypothyroidism (acquired) Osteoarthritis of right knee Right knee pain Skin cancer Small intestinal bacterial overgrowth (SIBO) Thyroid disorder Surgical History Surgical History H/O: hysterectomy (~06/2019) left ovaries History of bladder surgery History of Status post right unicompartmental knee replacement September 27, 2021 Family History Family History Father Diabetes mellitus Hypertension Heart disease Cerebrovascular accident Sibling Hypertension Ovarian cancer Son Diabetes mellitus Social History Social History (Updated 03/27/22 @ 10:36 by Niki Leigh MA) Smoking packs per day: 2 Smoking cigarettes per day: 40.0 Years smoked: 25 Smoking pack-years: 50.00 Smoking status: Former smoker Tobacco type: cigarettes Second hand tobacco smoke exposure: No Smoking end date: 04/09/00 Additional smoking assessment comments: PT DENIES ALL FORMS OF TOBACCO USE Alcohol intake: current Drinks per week: 2 Alcohol use details: RARE Substance use: never Substance use type: does not use Lack of Transportation: No Lack of Food: Never True Current Housing: I Have Housing Concerned About Future Housing: No Difficulty Paying Gas/Electric Bills: No Difficulty Paying for Meds: No Currently Unemployed: No Education: Master's Degree or Higher Difficulty w/ Childcare or Family Care: No Living arrangements: with family Additional occupation/education comments: [employer] Gender identity (if verbalized by the patient): Female Sexual Orientation (if Verbalized by the Patient): Straight or Heterosexual Spiritual care concerns: No Agree to blood products: Yes Anes - Eval Final PreProcedure Day of Procedure 04/06/22 08:54 Patient weight: normal Heart: regular rate and rhythm Lungs: clear to auscultation Airway: Mallampati scale class II Neurological: alert and oriented Last oral intake: >/= 8 hours ASA classification: III Judit
[2022-04-07] VITALS (7 sets, daily range): BP systolic 114–140; BP diastolic 77–86; PULSE 64–91; RESP 12–16; TEMP 36.3–36.8; O2SAT 96–99
--- NOTE | ~2022-04-07 | XR_ITS ---
EXAMINATION: XR surgery orthopedic DATE: 04/07/2022 09:51 INDICATION: Right foot arthrodesis TECHNIQUE: 2 fluoroscopic images of the right forefoot were obtained during procedure performed by Dr Flori Cruz. Radiologist was not present for the imaging or procedure. The amount of fluoroscopy time used during this procedure was 0.1 minutes. COMPARISON: None. FINDINGS: First metatarsophalangeal arthrodesis with dorsal plate and screw fixation. Alignment appears to yasmine in essentially anatomic. No fracture. Remaining joint spaces are normal. Soft tissue swelling and exp ected postoperative gas in the soft tissues at the operative bed. IMPRESSION: 1. Expected appearance post first metatarsophalangeal arthrodesis with dorsal plate and screw fixatio n. Reviewed, dictated and finalized at location A. P IMPRESSION: 1. Expected appearance post first metatarsophalangeal arthrodesis with dorsal p late and screw fixation.
--- NOTE | 2022-04-07 07:13 | WPDHPUPDATE1 ---
History and Physical Update Update Date/Time: 04/07/22 07:13 History and Physical has been reviewed, including an updated exam of the patient. There are NO changes in the patient's condition. Risks, benefits, and alternatives have been discussed and questions answered. Patient agrees to proceed with procedure.
[2022-04-07] MEDS: LACTATED RINGERS 1,000 ML 30 ML IV CONT ×2 (07:40→10:05)
--- NOTE | 2022-04-07 08:39 | WPDANESPNB ---
Anes - Peripheral Nerve Block Date/Time: 04/07/22 08:39 I have discussed with the patient/family/POA the placement of a peripheral nerve block for post-operative pain management, including associated risks, benefits, complications, and side effects. Alternative methods of post-operative analgesia were detailed. Questions were solicited and answers provided to the satisfaction of the patient/family/POA. Time-Out: A pre-procedural Time-Out was completed immediately before starting the procedure and confirmed: Patient Identification, Site, Procedure, Patient Position and the Availability of Requisite Equipment. Clinical Indications: Acute post-operative pain management requested by the operative surgeon. Nerve Block Insertion Note Anes-nerve block: posterior fossa sciatic left and adductor canal left Patient position: supine (for adductor canal) and other (right lateral for popliteal) Skin prep: chlorhexidine Needle: 22 gauge, stimulating, insulated echogenic needle. Needle length: 80 mm Technique: nerve stimulation lost at (mA) (for popliteal lost at 0.2) and ultrasound Injectate: bupivacaine 0.5% with epi 5 mcg/ml (20 mL for popliteal, 10 mL for adductor canal (no epi)) Observations: tolerated well Complications: none Procedure start time:: 853 Procedure end time:: 858
[2022-04-07] MEDS: ceFAZolin 2 GM/D5W 50 ML 2 GM/50 ML BAG IVPB (09:05)
--- NOTE | 2022-04-07 09:55 | W.PM.PROC2 ---
Procedure Note - Detailed Date of Procedure 04/07/22 Pre-op Diagnosis Arthritis 1st metatarsal phalangeal joint right foot Post-op Diagnosis Same Procedure Performed Arthrodesis of the first metatarsal phalangeal joint right foot Surgeon Rosendo Cruz JR, COSME Anesthesia General and Regional Indications Painful first metatarsal phalangeal joint right foot Description of Procedure PROCEDURE IN DETAIL: Under mild sedation, the patient was brought into the operating room, placed on the operating table in supine position. A pneumatic ankle tourniquet was placed about the patient's ipsilateral ankle. Following general LMA, a regional popliteal fossa block. The foot was then scrubbed, prepped, and draped in the usual aseptic manner. An Esmarch bandage was then used to exsanguinate the patient's foot and the pneumatic ankle tourniquet was then inflated. Surgery began in the following manner: Attention was directed to the dorsal aspect of the 1st metatarsophalangeal joint where there was a large subcutaneous prominence noted along the dorsomedial aspect of the joint. The incision was made starting along the central shaft of the 1st metatarsal and extending just proximal to the interphalangeal joint of the hallux. The incision was continued deep down through the subcutaneous tissues using sharp and blunt dissection. All bleeders were cauterized as necessary. At this point, the dissection was continued down to the level of the periosteum and capsular structures overlying the 1st metatarsophalangeal joint. A full length periosteum and capsular incision was made just medial to the extensor hallucis longus tendon. The periosteum and capsular structures were freed from the base of the proximal phalanx as well as the distal 1st metatarsal. At this point, the 1st metatarsophalangeal joint was identified. There was almost complete loss of articular cartilage to the head of the 1st metatarsal as well as the base of the proximal phalanx. There was significant broadening and hypertrophy of the 1st metatarsophalangeal joint. Utilizing a sagittal bone saw, the hypertrophied 1st metatarsal was resected dorsally, medially, and laterally. A power bur was used to make sure that there were no rough edges and also to further debride the hypertrophic 1st metatarsal. Next, a rongeur was used to resect all hypertrophic base of the proximal phalanx. At this point, the reamer system for the [employer] CrossCHECK system was used to denude the degenerative cartilage from the head of the 1st metatarsal as well as the base of the proximal phalanx. The cartilage and subchondral bone were fully debrided utilizing the reamer system until healthy bleeding bone was noted. Next, a 2-0 drill bit was used to further fenestrate the head of the 1st metatarsal as well as the base of the proximal phalanx in order to allow fusion across the 1st metatarsophalangeal joint. Next, a 0.045 inch K-wire was driven from the medial aspect of the base of the proximal phalanx into the head of the 1st metatarsal in order to serve as temporary fixation. A large steel plate was used to make sure that the hallux was in a rectus position both in the sagittal plane as well as the frontal and transverse plane. Excellent position of the hallux was noted. Next, a CrossCHECK plate was placed atop the 1st metatarsophalangeal joint held in position with [place] wires. Utilizing standard principles and techniques, the 2 distal drill holes were drilled and two 2.7mm mm fully-threaded locking screws were driven from dorsal to plantar holding the distal aspect of the plate intact. At this point, a 3.5mm lag screw was driven from dorsal distal to proximal plantar across the 1st metatarsophalangeal joint through the plate system with excellent compression noted after careful removal of the olive wire and temporary fixation from the 1st metatarsophalangeal joint. Next, 2 proximal drill holes were drille
== END 2022-04-07 11:40 | disposition home or self-care (01) ==
PROVIDERS: PCP Emergency Medicine; Visit Provider Podiatrist Foot & Ankle Surgery
PROC: (CPT 28750; principal; 2022-04-07 09:00)
DX: M19.071 Primary osteoarthritis, right ankle and foot (principal); G89.18 Other acute postprocedural pain; K21.9 Gastro-esophageal reflux disease without esophagitis; E03.9 Hypothyroidism, unspecified; I10 Essential (primary) hypertension; Z87.891 Personal history of nicotine dependence
CPT/HCPCS: 28750; 64447; 64445; 99199; C1713; J0690; J1100; J2250; J2405; J2704; J3010; J7120

== ENCOUNTER 2022-05-15 00:43 | Day surgery (SDC) | payer BC, SELFPAY ==
[2022-05-01 10:36] VITALS: BMI 23.4
[2022-05-15 06:50] VITALS: BP 125/88; PULSE 80; RESP 18; TEMP 35.7; O2SAT 96; BMI 24.5
[2022-05-15] MEDS: LACTATED RINGERS 1,000 ML 150 ML IV CONT (07:03)
--- NOTE | 2022-05-15 07:15 | WPDANESEPPF ---
Anes - Initial Pre Proc Eval Procedure: Operation Date: 05/15/22 08:00 Proposed Procedures p Esophagogastroduodenoscopy - Bhupendra Lopez MD Date/Time: 05/15/22 07:15 Surgeon: Bhupendra Lopez MD Pre Op Diagnosis: GERD Patient Data Age: 66 Gender: F Height: 1.6 m Weight: 62.9 kg Last Vital Signs Temp 35.7 C L 05/15/22 06:50 Pulse 80 05/15/22 06:50 Resp 18 05/15/22 06:50 BP 125/88 05/15/22 06:50 Pulse Ox 96 05/15/22 06:50 O2 Del Method Room Air 05/15/22 06:50 Allergies Allergy/AdvReac Type Severity Reaction Status Date / Time No Known Allergies Allergy Unknown Verified 05/15/22 06:54 Home Medications Medication Instructions Recorded Confirmed Type polyethylene glycol 3350 17 17 gm PO QAM 10/06/19 05/15/22 History gram/dose oral powder (Miralax) fexofenadine 60 mg-pseudoephedrine 1 tablet PO DAILY #180 tabs 01/27/21 05/15/22 Rx ER 120 mg tablet,ext.release,12 hr (Harmony-D 12 Hour) levothyroxine 100 mcg tablet See Rx Instructions .Route 07/20/21 05/15/22 Rx (Synthroid) .COMPLEX #90 tabs fexofenadine 60 mg tablet (Harmony 60 mg PO HS 09/14/21 05/15/22 History Allergy) mometasone 50 mcg/actuation nasal 2 spray intranasal QAM 09/14/21 05/15/22 History spray omeprazole 20 mg tablet,delayed 20 mg PO DAILY #90 tabs 03/27/22 05/15/22 Rx release nitrofurantoin macrocrystal 50 mg See Rx Instructions .Route 04/18/22 05/15/22 Rx capsule .COMPLEX #90 caps valsartan 160 See Rx Instructions .Route 04/18/22 05/15/22 Rx mg-hydrochlorothiazide 25 mg tablet .COMPLEX #90 tabs Patient hx anesthesia problems: none Family hx anesthesia problems: none Results Review: All pre-operative results and documents have been reviewed as part of the pre-operative evaluation. [facility] Past Medical History Medical History Allergies Colon cancer screening Essential (primary) hypertension GERD (gastroesophageal reflux disease) Hypothyroidism (acquired) Osteoarthritis of right knee Right knee pain Skin cancer Small intestinal bacterial overgrowth (SIBO) Thyroid disorder Surgical History Surgical History H/O: hysterectomy (~06/2019) left ovaries History of bladder surgery History of Status post right unicompartmental knee replacement September 27, 2021 Family History Family History Father Diabetes mellitus Hypertension Heart disease Cerebrovascular accident Sibling Hypertension Ovarian cancer Son Diabetes mellitus Social History Social History Smoking packs per day: 2 Smoking cigarettes per day: 40.0 Years smoked: 25 Smoking pack-years: 50.00 Smoking status: Former smoker Tobacco type: cigarettes Second hand tobacco smoke exposure: No Smoking end date: 04/09/00 Additional smoking assessment comments: PT DENIES ALL FORMS OF TOBACCO USE Alcohol intake: current Drinks per week: 2 Alcohol use details: RARE Substance use: never Substance use type: does not use Lack of Transportation: No Lack of Food: Never True Current Housing: I Have Housing Concerned About Future Housing: No Difficulty Paying Gas/Electric Bills: No Difficulty Paying for Meds: No Currently Unemployed: No Education: Master's Degree or Higher Difficulty w/ Childcare or Family Care: No Living arrangements: with family Occupation/Education: occupation Additional occupation/education comments: [employer] Gender identity (if verbalized by the patient): Female Sexual Orientation (if Verbalized by the Patient): Straight or Heterosexual Spiritual care concerns: No Agree to blood products: Yes Anes - Eval Final PreProcedure Day of Procedure 05/15/22 07:15 Patient melissa
--- NOTE | 2022-05-15 07:58 | PM.HPGS ---
History of Present Illness History of Present Illness Consent: Risks, benefits, and alternatives have been discussed and questions answered. Patient agrees to proceed with procedure. Chief complaint: GERD Narrative: Jessica Lam is a 66 year old female with gerd using omeprazole, never had egd Review of Systems Constitutional: Constitutional: Denies headache(s) and Denies weakness Eyes: Eyes: Denies blurry vision ENT: Reports Normal hearing present, Denies headache(s) and Denies neck pain Cardiovascular: Cardiovascular: Denies chest pain and Denies dyspnea Respiratory: Respiratory: Denies dyspnea Gastrointestinal: Gastrointestinal: Reports no additional gastrointestinal complaints Genitourinary: Genitourinary: Denies dysuria Musculoskeletal: Musculoskeletal: Denies neck pain Integumentary/Breasts: Skin/Breast: Denies dry skin Neurologic: Reports Normal hearing present, Denies headache(s) and Denies weakness Psychiatric: Psychiatric: Denies anxiety Endocrine: Endocrine: Denies change in body appearance Hematologic/Lymphatic: Hematologic/Lymphatic: Denies easy bleeding Allergic/Immunologic: Allergic/Immunologic: Denies urticaria PMFSH Past Medical History Medical History Allergies Colon cancer screening Essential (primary) hypertension GERD (gastroesophageal reflux disease) Hypothyroidism (acquired) Osteoarthritis of right knee Right knee pain Skin cancer Small intestinal bacterial overgrowth (SIBO) Thyroid disorder Surgical History Surgical History H/O: hysterectomy (~06/2019) left ovaries History of bladder surgery History of Status post right unicompartmental knee replacement September 27, 2021 Family History Family History Father Diabetes mellitus Hypertension Heart disease Cerebrovascular accident Sibling Hypertension Ovarian cancer Son Diabetes mellitus Social History Social History Smoking packs per day: 2 Smoking cigarettes per day: 40.0 Years smoked: 25 Smoking pack-years: 50.00 Smoking status: Former smoker Tobacco type: cigarettes Second hand tobacco smoke exposure: No Smoking end date: 04/09/00 Additional smoking assessment comments: PT DENIES ALL FORMS OF TOBACCO USE Alcohol intake: current Drinks per week: 2 Alcohol use details: RARE Substance use: never Substance use type: does not use Lack of Transportation: No Lack of Food: Never True Current Housing: I Have Housing Concerned About Future Housing: No Difficulty Paying Gas/Electric Bills: No Difficulty Paying for Meds: No Currently Unemployed: No Education: Master's Degree or Higher Difficulty w/ Childcare or Family Care: No Living arrangements: with family Occupation/Education: occupation Additional occupation/education comments: [employer] Gender identity (if verbalized by the patient): Female Sexual Orientation (if Verbalized by the Patient): Straight or Heterosexual Spiritual care concerns: No Agree to blood products: Yes Meds Home Medications and Allergies Home Medications Medication Instructions Recorded Confirmed Type polyethylene glycol 3350 17 17 gm PO QAM 10/06/19 05/15/22 History gram/dose oral powder (Miralax) fexofenadine 60 mg-pseudoephedrine 1 tablet PO DAILY #180 tabs 01/27/21 05/15/22 Rx ER 120 mg tablet,ext.release,12 hr (Harmony-D 12 Hour) levothyroxine 100 mcg tablet See Rx Instructions .Route 07/20/21 05/15/22 Rx (Synthroid) .COMPLEX #90 tabs fexofenadine 60 mg tablet (Harmony 60 mg PO HS 09/14/21 05/15/22 History Allergy) mometasone 50 mcg/actuation nasal 2 spray intranasal QAM 09/14/21 05/15/22 History spray omeprazole 20 mg tablet,delayed 20 mg PO DAILY #9
[2022-05-15 08:09] VITALS: BP 133/87; PULSE 79; RESP 21; O2SAT 98
[2022-05-15 08:19] VITALS: BP 135/91; PULSE 78; RESP 20; O2SAT 99
[2022-05-15 08:29] VITALS: BP 126/89; PULSE 75; RESP 17; O2SAT 99
== END 2022-05-15 08:31 | disposition home or self-care (01) ==
PROVIDERS: PCP Emergency Medicine; Visit Provider Internal Medicine Gastroenterology
PROC: 0DJ08ZZ Inspection of Upper Intestinal Tract, Via Natural or Artificial Opening Endoscopic (ICD-10-PCS; CPT 43235; principal; 2022-05-15 08:00)
DX: K21.9 Gastro-esophageal reflux disease without esophagitis (principal); I10 Essential (primary) hypertension; E03.9 Hypothyroidism, unspecified; Z87.891 Personal history of nicotine dependence
CPT/HCPCS: 43239; 88305; J2704; J7120

== ENCOUNTER → 2023-03-12 12:55 | Outpatient (CLI) | payer MEDICARE, SELFPAY ==
--- NOTE | ~2023-03-12 | MM_ITS ---
EXAMINATION: MM screening [facility] BI w atif HISTORY: Screening mammogram TECHNIQUE: Craniocaudal and mediolateral oblique 3-D tomosynthesis images were obtained and synthetic 2-D images were generated. CAD analysis was submitted and interpreted. COMPARISON: 02/13/2022, 11/24/2020, 11/11/2020, 06/10/2019 BREAST PARENCHYMAL COMPOSITION: The breasts are heterogeneously dense, which may obscure small masses . FINDINGS: No suspicious mass, calcification, or architectural distortion are identified in either macey ast to suggest malignancy. There has been no suspicious interval change. IMPRESSION: 1. No mammographic evidence of malignancy. 2. Recommend routine screening mammography in one year. BI-RADS Category 1: Negative Reviewed, dictated and finalized at location A. ANN MACHINE OPERATOR
== END ==
PROVIDERS: PCP Emergency Medicine; Visit Provider Obstetrics & Gynecology
DX: Z12.31 Encounter for screening mammogram for malignant neoplasm of breast (principal)
CPT/HCPCS: 77063; 77067

== ENCOUNTER 2023-05-17 10:24 | Outpatient (CLI) | payer MEDICARE, SELFPAY ==
--- NOTE | ~2023-05-17 | XR_ITS ---
EXAMINATION: XR abdomen/kub 1V INDICATION: Constipation TECHNIQUE: Supine views of the abdomen were obtained on 2 radiographs. COMPARISON: 10/29/2020 FINDINGS: A moderate volume of colonic stool is present. There are no dilated loops of bowel. The bow el gas pattern is normal. Lumbar levoscoliosis is noted. IMPRESSION: 1. Moderate volume of colonic stool. Reviewed, dictated and finalized at location L. ION DREDGE DUMPING SUPERVISOR
== END 2023-05-17 10:25 | disposition home or self-care (01) ==
PROVIDERS: PCP Emergency Medicine; Visit Provider Nurse Practitioner Family
DX: R14.0 Abdominal distension (gaseous) (principal); K59.09 Other constipation
CPT/HCPCS: 74018

== ENCOUNTER 2023-06-28 08:49 | Outpatient (CLI) | payer MEDICARE, SELFPAY ==
--- NOTE | ~2023-06-28 | CT_ITS ---
EXAMINATION: CT abdomen pelvis w con DATE: 06/28/2023 09:22 INDICATION: Gaseous abdominal distention TECHNIQUE: Computed tomography (CT) of the abdomen and pelvis was performed with 100 CC Omnipaque 350 intravenous contrast. Automated exposure control and iterative reconstruction technique were employe d. Exam dose: 268.73 mGy-cm total exam DLP. COMPARISON: May 27, 2023 KUB FINDINGS: Mild emphysematous changes in the lower lung zones. 3.2 cm bulla at the base of the middle lobe. Mild bilateral lower lobe dependent atelectasis. Normal heart size. No pericardial or pleural effusion. The liver, gallbladder, bile ducts, spleen, pancreas and pancreatic duct are unremarkable. Normal morphology of the adrenal glands. 1.6 cm left renal cyst. Very small exophytic cyst of the lower pole of the right kidney. No urinary t ract calculus or hydroureteronephrosis. The urinary bladder is unremarkable. Status post hysterectomy . There is atherosclerotic calcification but normal caliber of the abdominal aorta. No intraperitoneal or retroperitoneal or pelvic mass lesion or adenopathy or ascites is evident. Normal appendix. There are numerous diverticula in the sigmoid and to a lesser extent descending colo n. No CT evidence of diverticulitis. No bowel obstruction, bowel wall thickening, pneumatosis or intr aperitoneal free air is detected. Included skeletal structures are unremarkable; no suspicious osteolytic or osteoblastic lesions. IMPRESSION: Normal appendix Diverticulosis of left colon; no CT evidence of diverticulitis Renal cysts Reviewed, dictated and finalized at Location A. Reviewed, dictated and finalized at location L.
== END 2023-06-28 08:50 | disposition home or self-care (01) ==
PROVIDERS: PCP Emergency Medicine; Visit Provider Nurse Practitioner Family
DX: R14.0 Abdominal distension (gaseous) (principal); K57.90 Diverticulosis of intestine, part unspecified, without perforation or abscess without bleeding; N28.1 Cyst of kidney, acquired
CPT/HCPCS: 74177; Q9967

== ENCOUNTER 2023-08-24 12:56 | Outpatient (CLI) | payer MEDICARE, SELFPAY | END 2023-08-24 12:57 | disposition home or self-care (01) | LOC: ANHAUDIO 12:57 | PROVIDERS: PCP Emergency Medicine; Visit Provider Emergency Medicine | DX: H90.3 Sensorineural hearing loss, bilateral (principal); H93.13 Tinnitus, bilateral | CPT/HCPCS: 92557; 92567 ==

== ENCOUNTER 2023-09-05 01:36 | Day surgery (SDC) | payer MEDICARE, SELFPAY ==
[2023-08-16 12:53] VITALS: BMI 25.0
[2023-09-05 07:50] VITALS: BP 138/81; PULSE 70; RESP 16; TEMP 36.2; O2SAT 98
[2023-09-05] MEDS: LACTATED RINGERS 1,000 ML 150 ML IV CONT (07:59)
--- NOTE | 2023-09-05 08:29 | WPDANESEPPF ---
Anes - Initial Pre Proc Eval Procedure: Operation Date: 09/05/23 09:00 Proposed Procedures p Esophagogastroduodenoscopy - Bhupendra Lopez MD Date/Time: 09/05/23 08:29 Surgeon: Bhupendra Lopez MD Pre Op Diagnosis: GERD without esophagitis, abdominal distension gas Patient Data Age: 68 Gender: F Height: 1.6 m Weight: 62.6 kg Last Vital Signs Temp 97.1 F L 09/05/23 07:50 Pulse 70 09/05/23 07:50 Resp 16 09/05/23 07:50 BP 138/81 09/05/23 07:50 Pulse Ox 98 09/05/23 07:50 O2 Del Method Room Air 09/05/23 07:50 Allergies Allergy/AdvReac Type Severity Reaction Status Date / Time No Known Allergies Allergy Unknown Verified 09/05/23 07:49 Home Medications Medication Instructions Recorded Confirmed Type polyethylene glycol 3350 17 17 gm PO QAM 10/06/19 08/16/23 History gram/dose oral powder (Miralax) fexofenadine 60 mg tablet (Harmony 60 mg PO HS #90 tabs 09/25/22 08/16/23 Rx Allergy) fexofenadine 60 mg-pseudoephedrine 1 tablet PO DAILY #180 tabs 09/25/22 08/16/23 Rx ER 120 mg tablet,ext.release,12 hr (Harmony-D 12 Hour) valsartan 160 See Rx Instructions .Route 09/25/22 08/16/23 Rx mg-hydrochlorothiazide 25 mg tablet .COMPLEX #90 tabs mometasone 50 mcg/actuation nasal 2 spray intranasal QAM #17 grams 05/08/23 08/16/23 Rx spray levothyroxine 75 mcg tablet 75 mcg PO DAILY #90 tabs 05/30/23 08/16/23 Rx omeprazole 20 mg capsule,delayed 20 mg PO DAILY 3 months #90 caps 06/14/23 08/16/23 Rx release nitrofurantoin macrocrystal 50 mg See Rx Instructions PO .COMPLEX 09/04/23 09/05/23 Rx capsule #90 caps Patient hx anesthesia problems: none Family hx anesthesia problems: none Results Review: All pre-operative results and documents have been reviewed as part of the pre-operative evaluation. [facility] Past Medical History Medical History Allergies Bloating Colon cancer screening Essential (primary) hypertension GERD (gastroesophageal reflux disease) Hypothyroidism (acquired) Osteoarthritis of right knee Right knee pain Skin cancer Small intestinal bacterial overgrowth (SIBO) Thyroid disorder Surgical History Surgical History H/O: hysterectomy (~06/2019) left ovaries History of bladder surgery History of History of foot surgery right foot Status post right unicompartmental knee replacement September 27, 2021 Family History Family History Father Diabetes mellitus Hypertension Heart disease Cerebrovascular accident Sibling Hypertension Ovarian cancer Son Diabetes mellitus Social History Social History Smoking packs per day: 2 Smoking cigarettes per day: 40.0 Years smoked: 27 Smoking pack-years: 54.00 Smoking status: Former smoker Tobacco type: cigarettes Second hand tobacco smoke exposure: No Smoking end date: 04/09/00 Additional smoking assessment comments: PT DENIES ALL FORMS OF TOBACCO USE Alcohol intake: current Drinks per week: 2 Alcohol use details: RARE Substance use: never Substance use type: does not use Lack of Transportation: No Lack of Food: Never True Current Housing: I Have Housing Concerned About Future Housing: No Difficulty Paying Gas/Electric Bills: No Difficulty Paying for Meds: No Currently Unemployed: No Education: Master's Degree or Higher Difficulty w/ Childcare or Family Care: No Living arrangements: with family Occupation/Education: occupation Additional occupation/education comments: [employer] Gender identity (if verbalized by the patient): Female Sexual Orientation (if Verbalized by the Patient): Straight or Heterosexual Spiritual care concerns: No Agree to blood products: Yes Anes - Ev
--- NOTE | 2023-09-05 08:45 | PM.HPGS ---
History of Present Illness History of Present Illness Consent: Risks, benefits, and alternatives have been discussed and questions answered. Patient agrees to proceed with procedure. Chief complaint: GERD without esophagitis, abdominal distension gas Narrative: Jessica Lam is a 68 year old female with sensation of fullness, CT scan and cbc/cmp/serology for celiac negative/no major findings. Review of Systems Review of Systems: All systems reviewed & are unremarkable except as noted in HPI and below PMFSH Past Medical History Medical History Allergies Bloating Colon cancer screening Essential (primary) hypertension GERD (gastroesophageal reflux disease) Hypothyroidism (acquired) Osteoarthritis of right knee Right knee pain Skin cancer Small intestinal bacterial overgrowth (SIBO) Thyroid disorder Surgical History Surgical History H/O: hysterectomy (~06/2019) left ovaries History of bladder surgery History of History of foot surgery right foot Status post right unicompartmental knee replacement September 27, 2021 Family History Family History Father Diabetes mellitus Hypertension Heart disease Cerebrovascular accident Sibling Hypertension Ovarian cancer Son Diabetes mellitus Social History Social History Smoking packs per day: 2 Smoking cigarettes per day: 40.0 Years smoked: 27 Smoking pack-years: 54.00 Smoking status: Former smoker Tobacco type: cigarettes Second hand tobacco smoke exposure: No Smoking end date: 04/09/00 Additional smoking assessment comments: PT DENIES ALL FORMS OF TOBACCO USE Alcohol intake: current Drinks per week: 2 Alcohol use details: RARE Substance use: never Substance use type: does not use Lack of Transportation: No Lack of Food: Never True Current Housing: I Have Housing Concerned About Future Housing: No Difficulty Paying Gas/Electric Bills: No Difficulty Paying for Meds: No Currently Unemployed: No Education: Master's Degree or Higher Difficulty w/ Childcare or Family Care: No Living arrangements: with family Occupation/Education: occupation Additional occupation/education comments: [employer] Gender identity (if verbalized by the patient): Female Sexual Orientation (if Verbalized by the Patient): Straight or Heterosexual Spiritual care concerns: No Agree to blood products: Yes Meds Home Medications and Allergies Home Medications Medication Instructions Recorded Confirmed Type polyethylene glycol 3350 17 17 gm PO QAM 10/06/19 08/16/23 History gram/dose oral powder (Miralax) fexofenadine 60 mg tablet (Harmony 60 mg PO HS #90 tabs 09/25/22 08/16/23 Rx Allergy) fexofenadine 60 mg-pseudoephedrine 1 tablet PO DAILY #180 tabs 09/25/22 08/16/23 Rx ER 120 mg tablet,ext.release,12 hr (Harmony-D 12 Hour) valsartan 160 See Rx Instructions .Route 09/25/22 08/16/23 Rx mg-hydrochlorothiazide 25 mg tablet .COMPLEX #90 tabs mometasone 50 mcg/actuation nasal 2 spray intranasal QAM #17 grams 05/08/23 08/16/23 Rx spray levothyroxine 75 mcg tablet 75 mcg PO DAILY #90 tabs 05/30/23 08/16/23 Rx omeprazole 20 mg capsule,delayed 20 mg PO DAILY 3 months #90 caps 06/14/23 08/16/23 Rx release nitrofurantoin macrocrystal 50 mg See Rx Instructions PO .COMPLEX 09/04/23 09/05/23 Rx capsule #90 caps Allergies Allergy/AdvReac Type Severity Reaction Status Date / Time No Known Allergies Allergy Unknown Verified 09/05/23 07:49 Vital Signs Vital Signs - 24 hr 09/05/23 07:50 Temperature 97.1 F L Pulse Rate 70 Respiratory Rate 16 Blood Pressure 138/81 Pulse Oximetry 98 Oxygen Delivery Room Air Exam Const: General: comfortable and no acute d
[2023-09-05] MEDS: BENZOCAINE (*SP) 60 ML SPRAY CAN (HURRICAINE) 1 SPRAY MUCOUS MEM (08:51)
[2023-09-05 09:01] VITALS: BP 125/86; PULSE 69; RESP 14; O2SAT 97
[2023-09-05 09:11] VITALS: BP 129/91; PULSE 71; RESP 16; O2SAT 98
[2023-09-05 09:21] VITALS: BP 126/79; PULSE 71; RESP 25; O2SAT 100
== END 2023-09-05 09:27 | disposition home or self-care (01) ==
PROVIDERS: PCP Emergency Medicine; Referring Provider Nurse Practitioner Family; Visit Provider Internal Medicine Gastroenterology
PROC: 0DJ08ZZ Inspection of Upper Intestinal Tract, Via Natural or Artificial Opening Endoscopic (ICD-10-PCS; CPT 43235; principal; 2023-09-05 09:00)
DX: K29.50 Unspecified chronic gastritis without bleeding (principal); I10 Essential (primary) hypertension; E03.9 Hypothyroidism, unspecified; Z87.891 Personal history of nicotine dependence
CPT/HCPCS: 43239; 88305; J2704; J7120

== ENCOUNTER 2023-09-11 15:29 | Outpatient (CLI) | payer MEDICARE, SELFPAY ==
--- NOTE | ~2023-09-11 | XR_ITS ---
EXAMINATION: XR chest 2V Exam Date/Time: 09/11/2023 15:50 CDT HISTORY: R06.09 - Other forms of dyspnea SOB X 1 YR Comparison: 08/02/2014. RESULT: Lines, tubes, and devices: None. Lungs and pleura: Clear. Cardiomediastinal silhouette: Stable. Other: No acute osseous or upper abdominal finding. IMPRESSION: No acute cardiopulmonary process. Reviewed, dictated and finalized at location K.
== END 2023-09-11 15:30 | disposition home or self-care (01) ==
LOC: ANHIMG 15:30
PROVIDERS: PCP Emergency Medicine; Visit Provider Emergency Medicine
DX: R06.09 Other forms of dyspnea (principal)
CPT/HCPCS: 71046

== ENCOUNTER 2023-10-01 06:58 | Outpatient (CLI) | payer MEDICARE, SELFPAY ==
--- NOTE | ~2023-10-01 | NM_ITS ---
EXAM: NM gastric emptying study DATE: 10/01/2023 11:55 INDICATION: Gaseous abdominal distention TECHNIQUE: A gastric emptying study was performed using the methodology of Sydney DE JESUS, et al. J Nucl Med 2007; 48:568-572. The patient was given a meal consisting of 2 scrambled eggs labeled with 1 mCi Tc-99m sulfur colloid, 2 slices of toast, two packages of jam, and approximately 120 mL of water. Si multaneous anterior and posterior 1-min images of the abdomen were obtained with the patient supine a t multiple time points over a total period of 4 hours. The geometric mean of anterior and posterior v iews was determined, and the percentage retention was calculated for each time point. COMPARISON: None. FINDINGS: Gastric retention of the radiotracer-labeled meal was 45%, 12%, and 2% at the 1-hour, 2-hour, and 4-h our time points, respectively. With this technique, apparent rapid gastric emptying is suggested by < 30% gastric retention at 1 hour. Delayed gastric emptying is defined by gastric retention of >90% at 1 hour, >60% retention at 2 hours, or >10% retention at 4 hours. IMPRESSION: 1. Normal gastric emptying. Reviewed, dictated and finalized at location B. IMPRESSION: 1. Normal gastric emptying.
== END 2023-10-01 06:59 | disposition home or self-care (01) ==
PROVIDERS: PCP Emergency Medicine; Visit Provider Internal Medicine Gastroenterology
DX: R14.0 Abdominal distension (gaseous) (principal); K21.9 Gastro-esophageal reflux disease without esophagitis
CPT/HCPCS: 78264; A9541

== ENCOUNTER 2024-04-21 14:53 | Outpatient (CLI) | payer MEDICARE, SELFPAY ==
--- NOTE | ~2024-04-21 | MM_ITS ---
EXAMINATION: MM screening to BI w atif HISTORY: Screening mammogram TECHNIQUE: Craniocaudal and mediolateral oblique 3-D tomosynthesis images were obtained and synthetic 2-D images were generated. CAD analysis was submitted and interpreted. COMPARISON: 03/12/2023, 02/13/2022 BREAST PARENCHYMAL COMPOSITION:Dense: The breasts are heterogeneously dense, which may obscure small masses. FINDINGS: No suspicious mass, calcification, or architectural distortion are identified in either macey ast to suggest malignancy. There has been no suspicious interval change. IMPRESSION: No mammographic evidence of malignancy. Recommend routine screening mammography in one year. BI-RADS Category 1: Negative Reviewed, dictated and finalized at location . [facility]
== END 2024-04-21 14:54 | disposition home or self-care (01) ==
LOC: MICIMG 14:55
PROVIDERS: PCP Internal Medicine; Visit Provider Obstetrics & Gynecology
DX: Z12.31 Encounter for screening mammogram for malignant neoplasm of breast (principal)
CPT/HCPCS: 77063; 77067

== ENCOUNTER 2024-08-21 08:12 | Outpatient (CLI) | payer MEDICARE, SELFPAY ==
--- OUTSIDE RECORDS SUMMARY | 2024-08-21 08:16 | XMS_ITS | Referral Summary ---
Author Organization [facility] Address [address] [place] [address] Care Team Providers Care Film Or Tape Librarian Name Role Phone Lowell Mayo MD Primary Care Provider [phone] Allergies No known active allergies Medications ranitidine (ZANTAC) 150 mg capsule 150 mg. 0 0 01/17/2016 Active fexofenadine-pse udoephedrine (LAKESHA-D 12 HOUR) 60-120 mg per 12 hr tablet take 1 tablet by oral route 2 times every day 0 11/13/2011 Active quinapril (ACCUPRIL) 20 mg tablet take 1 tablet (20MG) by oral route every day 0 11/13/2011 Active levothyroxine (SYNTHROID, LEVOTHROID) 88 mcg tablet 01/22/2017 Active mometasone (NASONEX) 50 mcg/actuation nasal spray 11/09/2016 Active nitrofurantoin (MACRODANTIN) 50 mg capsule 01/16/2017 Active estradiol (ESTRACE) 0.01 % (0.1 mg/gram) vaginal cream Insert 2 g into the vagina 2 (two) times a week. 42.5 g 2 02/19/2017 Active Active Problems Problem Noted Date Diagnosed Date Hypothyroidism 08/23/2013 Overview (07/12/2016): Hypothyroid Hypertension 08/23/2013 Overview (07/13/2016): HBP (high blood pressure) Social History Tobacco Use Types Packs/Day Years Used Date Smoking Tobacco: Former Cigarettes Q uit: 2000 Smokeless Tobacco: Never Alcohol Use Standard Drinks/Week Comments No 0 (1 standard drink = 0.6 oz pur e alcohol) Comments No Sex and Gender Information Value Date Recorded Sex Assigned at Not on file Legal Sex Female 10:41 AM MACHINE SNELLER Gender Identity Not on file Sexual Orientation Not on file Last Filed Vital Signs Vital Sign Reading Time Taken Comments Blood Pressure 128/84 04/08/2018 9:31 AM MACHINE SNELLER Pulse - - Temperature - - Respiratory Rate - - Oxygen Saturation - - Inhaled Oxygen Concentration - - Weight 58.1 kg (128 lb) 04/08/2018 9:31 AM MACHINE SNELLER Height 158 cm (5' 2.2 ) 04/08/2018 9:31 AM MACHINE SNELLER Body Mass Index 23.26 04/08/2018 9:31 AM MACHINE SNELLER Plan of Treatment Not [place] [address] [address] [place] [address] Care Teams Film Or Tape Librarian Relationship Specialty Start Date End Date Lowell Mayo MD [address] [place] [place] [address] [facility] - General 01/18/15
--- OUTSIDE RECORDS SUMMARY | 2024-08-21 08:16 | XMS_ITS | Clinical Summary ---
Author Organization [facility] Address [address] [place] [address] Care Team Providers Care Kitchen Worker Name Role Phone Lowell Mayo MD Primary Care Provider [phone] Allergies No known active allergies Medications ranitidine [...] 08/23/2013 Overview (07/13/2016): HBP (high blood pressure) Surgical History Surgery Date Site/Laterality Comments BLADDER SUSPENSION 04/09/2001 - 04/08/2002 SECTION TONSILLECTOMY Medical History Medical History Date Comments Hypothyroidism Hypertension Family History Medical History Relation Name Comments Breast cancer Neg Hx Colon cancer Neg Hx Deep vein thrombosis Neg Hx Ovarian cancer Neg Hx Thrombophilia Neg Hx Uterine cancer Neg Hx Social History Tobacco Use Types Packs/Day Years Used Date Smoking Tobacco: Former Cigarettes Q uit: 1999 Smokeless Tobacco: Never Alcohol Use Standard Drinks/Week Comments No 0 (1 standard drink = 0.6 oz pur e alcohol) Comments No Sex and Gender Information Value Date Recorded Sex Assigned at Not on file Legal Sex Female 10:41 AM EMPLOYMENT AND CLAIMS AIDE Gender Identity Not on file Sexual Orientation Not on file Obstetrics History Para Term AB IAB SAB Ectopic Multiple Livin g Live Births 2 2 2 2 2 Date Outcome GA Total Labor Labor//3rd Weight Sex Type Anes PTL [place] A1 A5 Name Clin Term CS-Un spec N Living Complications:Pre eclampsia Term Vag-S pont N Living Complications:None Last Filed Vital Signs Vital Sign Reading Time Taken Comments Blood Pressure 128/84 04/08/2018 9:31 AM EMPLOYMENT AND CLAIMS AIDE Pulse - - Temperature - - Respiratory Rate - - Oxygen Saturation - - Inhaled Oxygen Concentration - - Weight 58.1 kg (128 lb) 04/08/2018 9:31 AM EMPLOYMENT AND CLAIMS AIDE Height 158 cm (5' 2.2 ) 04/08/2018 9:31 AM EMPLOYMENT AND CLAIMS AIDE Body Mass Index 23.26 04/08/2018 9:31 AM EMPLOYMENT AND CLAIMS AIDE Plan of Treatment Not on file [place] [id number] Care Teams Kitchen Worker Relationship Specialty Start Date End Date Lowell Mayo MD [address] [place] [address] PCP - General 01/18/15
--- OUTSIDE RECORDS SUMMARY | 2024-08-21 08:16 | XMS_ITS | Clinical Summary ---
Author Organization [facility] Address [address] [place] [address] Phone Care Team Providers Care Desk Pens Assembler Name Role Phone Oswaldo Mayo MD Primary Care Provider [phone] Allergies No known active allergies Medications valsartan (DIOVAN) 40 mg tablet Take 20 mg by mouth daily. Active levothyroxine 88 mcg tablet Take 100 mcg by mouth daily. 7 Active fexofenadine-pseu doephedrine SR 12 hour (Harmony-D 12 Hour) 60-120 mg tablet take 1 tablet by oral route 2 times every day 2 Active mometasone (NASONEX) 50 mcg/actuation [place], Non-Aerosol 7 Active nitrofurantoin macrocrystal (MACRODANTIN) 50 mg capsule 7 Active famotidine (PEPCID) 10 mg tablet Take 10 mg by mouth 2 times daily. Active oxyCODONE (ROXICODONE) 5 mg tabletIndications :S/P vaginal hysterectomy Take 1 Tablet by mouth every 4 hours as needed for Pain. Max Daily Amount: 6 tablets 37 Tablet 06/21/2019 9:53 AM CDT 0 Active rivaroxaban (XARELTO) 10 mg Tablet Take 1 Tablet (10 mg) by mouth daily starting after surgery. 14 Tablet 03/13/2022 4:16 PM COMMODITIES BROKER 2 Active oxyCODONE-acetami nophen (PERCOCET) 5-325 mg tablet Take 1 Tablet by mouth every 4-6 hours as needed for pain after surgery. 40 Tablet 03/13/2022 4:16 PM COMMODITIES BROKER 2 Active Active Problems Problem Noted Date Diagnosed Date Uterovaginal prolapse 06/20/2019 Stress incontinence 06/20/2019 Benign hypertension 06/20/2019 Hypothyroidism 06/20/2019 S/P vaginal hysterectomy 06/20/2019 Immunizations Immunization Administration Dates Next Due Influenza Seasonal Unspecified Formulation IM Social History Tobacco Use Types Packs/Day Years Used Date Smoking Tobacco: Never Smokeless Tobacco: Never Alcohol Use Standard Drinks/Week Comments Yes 0 (1 standard drink = 0.6 oz pur e alcohol) Comments No Sex and Gender Information Value Date Recorded Sex Assigned at Not on file Legal Sex Female 2:48 PM COMMODITIES BROKER Gender Identity Not on file Sexual Orientation Not on file Last Filed Vital Signs Vital Sign Reading Time Taken Comments Blood Pressure 117/67 06/21/2019 7:51 AM CDT Pulse 87 06/21/2019 7:51 AM CDT Temperature 36.6 C (97.9 F) 06/21/2019 7:51 AM CDT Respiratory Rate 18 06/21/2019 7:51 AM CDT Oxygen Saturation 98% 06/21/2019 7:51 AM CDT Inhaled Oxygen Concentration - - Weight 58.2 kg (128 lb 6.4 oz) 06/20/2019 8:07 A M CDT Height 161.3 cm (5' 3.5 ) 06/20/2019 8:07 AM CDT Body Mass Index 22.39 06/20/2019 8:07 AM CDT Plan of Treatment Health Maintenance Due Date Last Done Comments DTAP/TDAP/TD VACCINES (1 - Tdap) 1976 BREAST CANCER SCREENING 1997 COLORECTAL SCREENING 2002 Colorectal Cancer Screening 2002 FIT-DNA Q 3 years 2002 FIT/FOBT Q 1 year 2002 Flex Sig/CT Colonography Q 5 years 2002 PNEUMOCOCCAL VACCINE 50+ YEARS (1 of 1 - PCV) 08/16/19 08 ZOSTER VACCINE (1 of 2) 08/16/2007 OSTEOPOROSIS SCREENING 2022 INFLUENZA VACCINE (#1) 2023 03/04/2019 RSV VACCINE (60+ or ) (1 - 1-dose 75+ series) 2032 Medical Devices Implanted Type Area Behavioral Health Therapist Device Identifier Shelf Expiration Date Model / Serial / Lot Joana Knotless Mesh Sling Implanted:Qty : 1 on 06/20/2019 by Momo Cui MD at [facility] Mesh N/A: Urethra 03/21/2024 JOANA- / [id number] Sling Obtryx2 Trnsobt Mid-[place] Halo [id number] - [id number] Implanted:Qty : 1 on 06/20/2019 by Momo Cui MD at [facility] Sling N/A: Vagina [employer]- UROLOGY/ENGINE TESTING SUPERVISOR [id number] 03/08/2022 [id number] Explanted Type Area Behavioral Health Therapist Device Identifier Shelf Expiration Date Model / Serial / Lot Vaginal Sling Explanted:Qty: 1 on 06/20/2019 by Momo Cui MD at [facility] N/A: Vagina Insurance RX [facility] [employer] Advance Directives For more information, please contact: [phone] * Full Code (Latest Code Status on File) Date Activated Date Inactivated Comments 06/20/2019 8:14 AM 06/20/2019 2:13 PM Care Teams Desk Pens Assembler Relationship Specialty Start Date End Date Oswaldo Mayo MD [address] [place] [address] PCP - General Family Practice 06/04/19
--- OUTSIDE RECORDS SUMMARY | 2024-08-21 08:16 | XMS_ITS | Continuity of Care Document ---
Author Organization [employer] [facility] Address [address] [facility] [address] [place] [address] Phone Care Team Providers Care Granite Sandblaster Apprentice Name Role Phone Danielle TRAN FACS, Terrance Unavailable Unavailab le Allergies, Adverse Reactions, Alerts Substance Reaction Status Criticality No Known Allergies Active No Inform ation Medications Medication Instructions Dosage Effective Dates (start - stop) Status Comments Multivitamin Women 50 Plus 8 mg iron-400 mcg-300 mcg tablet take 1 by oral route every day 1 - Active Stool Softener 100 mg capsule take 1 capsule by oral route every day at bedtime as needed 100 MG - Active famotidine 10 mg tablet take 1 tablet by oral route 2 times every day as needed 10 MG - Active Asmanex HFA 50 mcg/actuation aerosol inhaler once daily - Active fexofenadine 60 mg tablet take 1 tablet by oral route every day 60 MG - Active Tirosint 100 mcg capsule take 1 capsule by oral route every day 100 MCG - Active Dulera 100 mcg-5 mcg/actuation HFA aerosol inhaler inhale 2 puff by inhalation route 2 times every day in the morning and evening 2.00 puff - Active nitrofurantoin macrocrystal 25 mg capsule take 2 capsule by oral route every 6 hours with food 50 MG - Active Harmony-D 12 Hour 60 mg-120 mg tablet,extended release take 1 tablet by oral route 2 times every day 1.00 tablet - Active Procedures Procedure Date Refraction No Charge Optomap Fundus Photos 024 Eye Exam & Treatment Refraction Eye Exam & Treatment Progressive Lens, Plastic Polycarb Lens Per Lens Polarization, Any Material, Per Lens Nov Refraction Eye Exam & Treatment Refraction Eye Exam, New Patient Vision Svcs Frames Purchases Progressive Lens Per Lens Lens-Index>1.66Plas;>1.80Glas 9 Anti-reflective Coating Vision Svcs Frames Purchases Progressive Lens Per Lens Polycarb Lens Per Lens Polarization, Any Material, Per Lens Oct Vision Svcs Frames Purchases Progressive Lens Per Lens Lens-Index 1.54-1.79 Glass Anti-reflective Coating Advance Directives Directive Yes / No Effective Date File Name No Information Encounters Encounter Description Practice Location Reason(s) For Visit Diagnoses Date Provider Providers Copied on Encounter [facility] [employer] [facility], [facility] [address], [place], [place], [id number], tel:[phone] [place] No Information 5 Danielle Carlos. [address], [address], [place], [place], [address], [place]. tel:[phone] [facility] [employer] [facility], [address] [address], [place], [place], [address], tel:[phone] [place] Professional Complete Exam (chief complaint) Nuclear sclerosis of both eyesDermatocha lasis of right upper eyelidDermatoc halasis of left upper eyelidCyst of left lower eyelid 4 Jyoti NADEGE Salazar. [address], [address], [place], [place], [address], . tel:[phone] Referring Provider: Renny Castro OD A, [address], [place], [address]. tel:[phone] [facility], [address] [employer] [employer] [address], [place], [place], [address], [place] tel:[phone] SEC Igor Lanza Complete Exam (chief complaint) Hypermetropia, bilateralPresb yopiaNuclear sclerosis of both eyesDermatocha lasis of right upper eyelidDermatoc halasis of left upper eyelid Apr-0 3 Jyoti OD Marie. [address], [address], [place], [place], [address], [place]. tel:[phone] Referring Provider: Marie Duarte, [facility] [address], [place], [address] . tel:[phone] [facility], [id number] [place], [place] [address] [address], [place], [place], [address], [place] tel:[phone] SEC Fang Brasher No Information Nov- 2 [facility] [employer] . [address], [address], [place], [place], [address], . tel:[phone] Referring Provider: Marie Duarte, [facility] [address], [place], [address] . tel:[phone] sulting Provider: Bill Parekh, [address] [facility], [place], [address] . tel:[phone] [facility], [address] [employer] [address], [place], [place], [address], [place] tel:[phone] SEC Fang Brasher Complete Exam (chief complaint) PresbyopiaNucl ear sclerosis of both eyesHypermetro brett, bilateral Aug- 2 Jyoti OD Marie. [facility] [address], [place], [place], [address], [place]. tel:[phone] Referring Provider: Renny Castro OD A, [address], [place], [address]. tel:[phone] [facility], [address], [place], [place], [address], [place] tel:[phone] SEC Kay INGRAM No Information 2 Danielle Carlos. [address], [address], [place], [place], [address], [place]. tel:[phone] [facility], [address], [place], [place], [address], [place] tel:[phone] SEC Fang Brasher Complete Exam (chief complaint) PresbyopiaNucl ear sclerosis of both eyes 9 Jo Steele. [address] [place] [address], [address] [facility], [place], [address], [place]. tel:[phone] Referring Provider: Renny Castro OD A, [address], [place], [address]. tel:[phone] [facility], [address], [place], [place], [address], [place] tel:[phone] SEC Fang Brasher No Information 9 [facility] . [address], [address], [place], [place], [address], [place]. tel:[phone] Referring Provider: Cedric Rand, [address] [place] [address] [address] [facility], [place], [address]. tel:[phone] sulting Provider: Bill Parekh, [address] [facility] A, [place], [address] . tel:[phone] [facility], [address], [place], [place], [address], [place] tel:[phone] SEC Fang Brasher No Information 9 Jo OD Cedric. [address] [facility], [address]th Floor, [place], [address], [place]. tel:[phone] [facility], [address] [place], [place] [address], [place], [place], [address], tel:[phone] SEC [place] No Information 8 [facility] [employer] . [address], [facility] [address], [place], [address], . tel:[phone] Referring Provider: Renny Santos, [address], [place], [address]. tel:[phone] tristan Provider: Bill Parekh [address], [place], [address] . tel:[phone] [facility], [address] [place] [address] [address], [place], [place], [address], tel:[phone] SEC Fang N [place] No Information 8 [facility] [employer] . [address], [address], [place], [address], . tel:[phone] Referring Provider: Renny Santos, [address], [place], [address]. tel:[phone] tristan Provider: Bill Parekh [address], [place], [address] . tel:[phone] Family History Family Member Type Diagnosis Age At Onset Father Problem (finding) Diabetes mellitus Payers Payer name Insurance type Covered democrat ID Authoriza tion(s) No Information Social History Type Description Quantity Date Captured Comments Sex Female Smoking Status No Information Chief Complaint And Reason For Visit No Information Reason For Referral Reason For Referral No Information Plan Of Treatment Date Type Action Status Goal Tobacco cessation counseling completed Goal Tobacco cessation counseling completed Appointment Jessica Lam BOOKED Patient Education Cataracts: Care Instruc tions completed Patient Education Cataracts: Care Instruc tions completed History Of Present Illness Encounter Date Complaint History Of Prese nt Illness Complete Exam The 67 year old patient presents for a complete exam ou. Monitoring cataracts ou. Patient denies any changes in vision ou. Patient states she has a little bump on LLL. Complete Exam The 66 year old patient presents for evaluation of Complete Exam in the right eye and left eye. Pt reports she is wanting to get new gls. Pt states she sees well with current gls, OU, DV and NV. Pt's PCP is Dr. Mark Del Castillo (Not in [employer]). Complete Exam The 66 year old patient presents for evaluation of Complete Exam in the right eye and left eye. Pt. has h/o Cataracts OU. Pt. states vision is good at distance and near. Pt. is not noticing any trouble with night driving. Pt. states no ocular discomfort. Complete Exam The 63 year old female presents for evaluation of Complete Exam in the right eye and left eye. Pt states that vision is stable with current gls x 1 yr. Pt notices a little blur when wearing sungls. Pt denies flashes and floaters OU. Functional Status Date Functional Assessmen t No Information Instructions Date Instruction Arlette reaves Impression/Plan Impression/Plan Impression/Plan Impression/Plan Assessments Type Assessment Date No Information Patient Care Teams Name Effective Dates (start - stop) Status Members No Information
[2024-08-21 19:17] LABS: Cholesterol 164 mg/dL (0-200); HDL Direct 59 mg/dL; Triglycerides 72 mg/dL (<150)
[2024-08-21 19:27] LABS: LDL Cholesterol Direct 72 mg/dL
[2024-08-27 15:39] LABS: Apolipoprotein B 69 mg/dL
== END 2024-08-21 08:13 | disposition home or self-care (01) ==
LOC: ANHGOSHLAB 08:13
PROVIDERS: PCP Internal Medicine; Visit Provider Internal Medicine
DX: E78.5 Hyperlipidemia, unspecified (principal)
CPT/HCPCS: 36415; 80061; 82172

== ENCOUNTER 2024-10-18 13:48 | Emergency (ER) | payer MEDICARE, SELFPAY ==
--- OUTSIDE RECORDS SUMMARY | 2024-10-18 13:50 | XMS_ITS | Referral Summary ---
Author Organization [facility] Address [address] [place] [address] Care Team Providers Care Subway Operator Name Role Phone Lowell Mayo MD Primary Care Provider [phone] Allergies No known active allergies Medications ranitidine [...] on file Legal Sex Female 10:41 AM DIE FINISHER Gender Identity Not on file Sexual Orientation Not on file Last Filed Vital Signs Vital Sign Reading Time Taken Comments Blood Pressure 128/84 04/08/2018 9:31 AM DIE FINISHER Pulse - - Temperature - - Respiratory Rate - - Oxygen Saturation - - Inhaled Oxygen Concentration - - Weight 58.1 kg (128 lb) 04/08/2018 9:31 AM DIE FINISHER Height 158 cm (5' 2.2) 04/08/2018 9:31 AM DIE FINISHER Body Mass Index 23.26 04/08/2018 9:31 AM DIE FINISHER Plan of Treatment Not [place] [address] [place] [address] Care Teams Subway Operator Relationship Specialty Start Date End Date Lowell Mayo MD [address] [place] [address] [facility] - General 01/18/15
--- OUTSIDE RECORDS SUMMARY | 2024-10-18 13:50 | XMS_ITS | Clinical Summary ---
Author Organization [facility] Address [address] [place] [address] Care Team Providers Care Customer Service Administrator Name Role Phone Lowell Mayo MD Primary Care Provider [phone] Allergies No known active allergies Medications ranitidine [...] on file Legal Sex Female 10:41 AM PEER COUNSELOR Gender Identity Not on file Sexual Orientation [...] Comments Blood Pressure 128/84 04/08/2018 9:31 AM PEER COUNSELOR Pulse - - Temperature - - Respiratory Rate - - Oxygen Saturation - - Inhaled Oxygen Concentration - - Weight 58.1 kg (128 lb) 04/08/2018 9:31 AM PEER COUNSELOR Height 158 cm (5' 2.2) 04/08/2018 9:31 AM PEER COUNSELOR Body Mass Index 23.26 04/08/2018 9:31 AM PEER COUNSELOR Plan of Treatment Not on file [place] [id number] Care Teams Customer Service Administrator Relationship Specialty Start Date End Date Lowell Mayo MD [address] [place] [address] PCP - General 01/18/15
--- OUTSIDE RECORDS SUMMARY | 2024-10-18 13:50 | XMS_ITS | Clinical Summary ---
Author Organization [facility] Address [address] [place] [address] Phone Care Team Providers Care Script Artist Name Role Phone Oswaldo Mayo MD Primary Care Provider [phone] Allergies No known active allergies Medications valsartan (DIOVAN) 40 mg tablet Take 20 mg by mouth daily. Active levothyroxine 88 mcg tablet Take 100 mcg by mouth daily. 7 Active fexofenadine-pseu doephedrine SR 12 hour (Harmony-D 12 Hour) 60-120 mg tablet take 1 tablet by oral route 2 times every day 2 Active mometasone (NASONEX) 50 mcg/actuation [place], Non-Aerosol 7 Active nitrofurantoin macrocrystal (MACRODANTIN) 50 [...] after surgery. 14 Tablet 03/13/2022 4:16 PM ASPHALT MACHINE OPERATOR 2 Active oxyCODONE-acetami nophen (PERCOCET) 5-325 mg tablet Take 1 Tablet by mouth every 4-6 hours as needed for pain after surgery. 40 Tablet 03/13/2022 4:16 PM ASPHALT MACHINE OPERATOR 2 Active Active Problems Problem Noted Date [...] on file Legal Sex Female 2:48 PM ASPHALT MACHINE OPERATOR Gender Identity Not on file Sexual Orientation [...] A M CDT Height 161.3 cm (5' 3.5) 06/20/2019 8:07 AM CDT Body Mass Index [...] 08/16/2007 OSTEOPOROSIS SCREENING 2022 INFLUENZA VACCINE (#1) 2024 03/04/2019 RSV VACCINE (60+ or ) (1 - 1-dose 75+ series) 2032 Medical Devices Implanted Type Area Under Presser Device Identifier Shelf Expiration Date Model / Serial / Lot Joana Knotless Mesh Sling Implanted:Qty : 1 on 06/20/2019 by Momo Cui MD at [facility] Mesh N/A: Urethra 03/21/2024 JOANA- / [id number] Sling Obtryx2 Trnsobt Mid-Uret Halo [id number] - [id number] Implanted:Qty : 1 on 06/20/2019 by Momo Cui MD at [facility] Sling N/A: Vagina [place] [employer] UROLOG[employer]/MOTHERCRAFT NURSE [id number] 03/08/2022 [id number] Explanted Type Area Under Presser Device Identifier Shelf Expiration Date Model / Serial / Lot Vaginal Sling Explanted:Qty: 1 on 06/20/2019 by Momo Cui MD at [facility] N/A: Vagina Insurance RX [facility] [employer] Advance Directives For more information, please contact: [phone] * Full Code (Latest Code Status on File) Date Activated Date Inactivated Comments 06/20/2019 8:14 AM 06/20/2019 2:13 PM Care Teams Script Artist Relationship Specialty Start Date End Date Oswaldo Mayo MD [address] [place] [address] PCP - General Family Practice 06/04/19
[2024-10-18 13:57] VITALS: BP 103/65; PULSE 82; RESP 18; TEMP 36.1; O2SAT 97
--- NOTE | 2024-10-18 14:01 | ED_ITS ---
HPI - Wound/Laceration General Chief Complaint: Wound/Laceration Stated Complaint: wound laceration Time Seen by Provider: 10/18/24 14:05 Source: patient and RN notes reviewed Mode of arrival: ambulatory Limitations: no limitations History of Present Illness HPI narrative: 69-year-old female presents with concern for laceration to the 2nd digit of her left hand. Reports she sustained laceration prior to arrival with a lawn care tool. She is up-to-date on her tetanus vaccination. She denies any decreased strength, sensation, range of motion in digit. Related Data Home Medications ?Medication ?Instructions ?Recorded ?Confirmed ?Last Taken ?Type psyllium husk 3.4 gram/5.4 gram 1 tbsp PO BID 04/07/24 10/18/24 Unknown History oral powder (Metamucil) aspirin 81 mg tablet,delayed 81 mg PO DAILY 04/16/24 10/18/24 Unknown History release (Adult Aspirin Regimen) Allergies Allergy/AdvReac Type Severity Reaction Status Date / Time No Known Allergies Allergy Unknown Verified 10/18/24 13:50 Review of Systems 2 Review of Systems: CONSTITUTIONAL: Denies malaise, chills, sweats, or fever. SKIN: Reports laceration to the 2nd digit of the left hand MUSCULOSKELETAL: Denies muscle skeletal pain NEUROLOGIC: Denies numbness, weakness All systems reviewed & are unremarkable except as noted in HPI and below PMFSH Past Medical History Medical History Colon, diverticulosis Irritable bowel syndrome Bloating Osteoarthritis of right knee Right knee pain Small intestinal bacterial overgrowth (SIBO) Allergies Thyroid disorder Colon cancer screening GERD (gastroesophageal reflux disease) Essential (primary) hypertension Hypothyroidism (acquired) Surgical History Surgical History History of foot surgery right foot Status post right unicompartmental knee replacement September 27, 2021 History of History of bladder surgery H/O: hysterectomy (~06/2019) left ovaries Family History Family History Father Diabetes mellitus Hypertension Heart disease Cerebrovascular accident Sibling Hypertension Ovarian cancer Son Diabetes mellitus Social History Social History Smoking packs per day: 2 Smoking cigarettes per day: 40.0 Years smoked: 27 Smoking pack-years: 54.00 Smoking status: Former smoker Tobacco type: cigarettes Second hand tobacco smoke exposure: No Smoking end date: 04/09/00 Additional smoking assessment comments: PT DENIES ALL FORMS OF TOBACCO USE Alcohol intake: current Drinks per week: 2 Alcohol use details: RARE Substance use: never Substance use type: does not use Do You Feel Safe in your Home?: Yes Lack of Transportation: No Lack of Food: Never True Current Housing: I Have Housing Concerned About Future Housing: No Difficulty Paying Gas/Electric Bills: No Difficulty Paying for Meds: No Currently Unemployed: No Education: Master's Degree or Higher Difficulty w/ Childcare or Family Care: No Living arrangements: with family Occupation/Education: occupation Additional occupation/education comments: [employer] Gender identity (if verbalized by the patient): Female Sexual Orientation (if Verbalized by the Patient): Straight or Heterosexual Spiritual care concerns: No Agree to blood products: Yes Comments At time of signature, agree with nursing past medical, surgical, social and family history. There is no relevant family history pertinent to the presenting complaint Exam 2 Narrative: GENERAL: Well-appearing, well-nourished, and in no acute distress. HEAD: Normocephalic EYES: PERRLA, conjunctivae clear NECK: Supple. CHEST: Speaks in full sentences. No respiratory distress. HEART: Regular rate and rhythm. Normal and equal peripheral pulses. EXTREMITIES: 2nd digit of left hand has normal strength and sensation. 5/5 strength with digit flexion, extension. Range of motion normal. No clubbing, cyanosis, or edema noted. Normal digital cascade with flexion of fingers, median, ulnar and radial nerve intact. Normal sensation of each side of finger. Normal thumb opposition. Good capillary refill and radial pulse. Distal capillary refill less than 3 seconds. SKIN: Warn, dry, intact, pink. 1 cm v-shaped laceration noted to the distal 2nd digit of the left hand and the subcutaneous tissue, involving the nail bed NEURO: Alert and oriented x3. PSYCH: Normal mood and affect Extrem: Hand/finger images: 1. V-shaped laceration involving both sides of the digit and the nail bed Course Course Emergency Course: Patient is aware of diagnosis, understands and agrees to treatment plan. Anticipatory guidance given. Patient agrees to follow-up as directed and is aware of reasons to seek care at the emergency department. Portions of this record may have been created with voice recognition software Level of Care: Express Care Visit Vital Signs Vital signs: Vital Signs Temperature 97.0 F L 10/18/24 13:57 Pulse Rate 82 10/18/24 13:57 Respiratory Rate 18 10/18/24 13:57 Blood Pressure 103/65 10/18/24 13:57 Pulse Oximetry 97 10/18/24 13:57 Oxygen Delivery Room Air 10/18/24 13:57 Temperature 97.0 F L 10/18/24 13:57 Pulse Rate 82 10/18/24 13:57 Respiratory Rate 18 10/18/24 13:57 Blood Pressure 103/65 10/18/24 13:57 Pulse Oximetry 97 10/18/24 13:57 Oxygen Delivery Room Air 10/18/24 13:57 Reviewed. Procedures Laceration Laceration 1: Date: 10/18/24 Time: 14:14 Site: hand Side (If applicable): left Size (cm): 1 Description: irregular Depth: simple, single layer Local Anesthetic: lidocaine 1% Amount of anesthesia used (mL): 2 Pre-repair: wound explored and irrigated ====== Skin Level ====== Skin layer closed with: prolene Size (cm): 5-0 Number of sutures: 4 Technique: simple, interrupted ====== Subcutaneous Layer ====== ====== Muscle Layer ====== ====== Tendon Layer ====== MDM - Wound/Laceration MDM Narrative Medical decision making narrative: Wound explored for foreign body and copious irrigation provided with no evidence of FB. Discussed the potential of retained foreign body with the patient and signs/symptoms that should prompt the patient to immediately go to the ED for reevaluation. There was no evidence of tendon or nerve lacerations. A sterile dressing was then applied and anticipatory guidance was provided. Tetanus prophylaxis was not given Differential Diagnosis Differential diagnosis: Likely laceration, abrasion and avulsion of skin Critical Care Time Critical Care Time Critical Care Time: No Discharge Plan Discharge Clinical Impression: Laceration Patient Disposition: Home Condition: Stable Instructions: Laceration (ED) Additional Instructions: Keep wound clean, and dry. Apply antibiotic ointment twice daily. Cover with bandage as needed to prevent contamination. Clean with soap and water twice daily, but do not soak, take baths, or swim until wound is completely healed. Do not clean with hydrogen peroxide. If any signs of infection such as redness, swelling, increasing pain, drainage of purulent discharge, streaks up your extremity develop, seek medical attention immediately. Followup with your primary care provider in 10 days for suture removal. After sutures are removed, keep your scar out of the sun. You may use OTC silicone pad and/or scar massage with ointment (for 10-15 min a day) after one month. Talk to your doctor if you think you aredeveloping a keloid. Patient Language: Citizen Of [place] Prescriptions: No Action fexofenadine-pseudoephedrine [Harmony-D 12 Hour] 60-120 mg tablet extended release 12 hr 1 tablet PO DAILY Qty: 180 3RF fexofenadine [Harmony Allergy] 60 mg tablet 60 mg PO HS Qty: 90 3RF aspirin [Adult Aspirin Regimen] 81 mg tablet,delayed release (DR/EC) 81 mg PO DAILY Metamucil 3.4 gram/5.4 gram powder 1 tbsp PO BID Rx Instructions: mix into at least 8 oz of water or juice before administering atorvastatin 10 mg tablet 10 mg PO DAILY Qty: 90 3RF omeprazole 20 mg capsule,delayed release(DR/EC) See Rx Instructions .ROUTE .COMPLEX Qty: 90 3RF Dose Instruction: TAKE 1 CAPSULE DAILY Rx Instructions: TAKE 1 CAPSULE DAILY levothyroxine 75 mcg tablet See Rx Instructions .ROUTE .COMPLEX Qty: 90 1RF Dose Instruction: TAKE 1 TABLET DAILY Rx Instructions: TAKE 1 TABLET DAILY mometasone 50 mcg/actuation spray,non-aerosol 2 spray NASAL QAM Qty: 17 3RF Rx Instructions: administer into each nostril May have three bottles at a time valsartan-hydrochlorothiazide 160-12.5 mg tablet 1 tablet PO DAILY Qty: 90 2RF nitrofurantoin macrocrystal 50 mg capsule 50 mg PO DAILY Qty: 90 3RF Rx Instructions: must administer with a meal/food Follow-up/Referrals: Jesus Chamorro DO [Primary Care Provider] - Time of Disposition: 14:16
== END 2024-10-18 14:38 | disposition home or self-care (01) ==
PROVIDERS: Emergency Provider Nurse Practitioner; PCP Internal Medicine
DX: S61.412A Laceration without foreign body of left hand, initial encounter (principal); E03.9 Hypothyroidism, unspecified; I10 Essential (primary) hypertension; Z87.891 Personal history of nicotine dependence; W27.8XXA Contact with other nonpowered hand tool, initial encounter
CPT/HCPCS: 99212; G0463; J2003